=== PATIENT | male | born 1960 | race African-American/Black ===

== ENCOUNTER 2023-08-11 19:12 | Emergency (ER) | payer OTHER, SELFPAY ==
[2023-08-11 19:14] VITALS: BP 135/97; PULSE 74; RESP 18; TEMP 35.9; O2SAT 99; BMI 33.0
--- NOTE | 2023-08-11 19:37 | CT_ITS ---
STUDY: CT ABDOMEN AND PELVIS WITHOUT CONTRAST REASON FOR EXAM: Male, 63 years old. right flank pain RADIATION DOSAGE (If Supplied By Facility): CTDIvol = ( 17.73 ) mGy, DLP = ( 983.44 ) mGycm TECHNIQUE: Transaxial images were obtained from the dome of the diaphragm to the symphysis pubis without oral contrast, and without intravenous contrast. Sagittal and coronal images were reconstructed. Individualized dose optimization techniques were used for this CT. COMPARISON: None. FINDINGS: Trace bilateral lower lobe atelectasis. Borderline cardiomegaly with coronary artery calcifications. Diffuse fatty liver. There are surgical clips in the gallbladder fossa consistent with a prior cholecystectomy. Normal spleen. Normal pancreas. Right adrenal lesion measuring 2.9 x 2.4 cm with Hounsfield units consistent with adenoma. Otherwise normal bilateral adrenal glands. Mild bilateral perinephric stranding. Tiny stone in the upper pole of the right kidney measuring 3.7 mm. Mild right hydronephrosis with right ureter distended to the approximate sacrum level where there is a stone measuring 3.5 mm. There is a left lower renal pole stone measuring 3.1 mm . Otherwise normal left kidney. Normal visualized stomach. Normal small intestine. The colon is decompressed with diffuse mild thickening of the wall concerning for mild colitis. The appendix is visualized and appears normal. There is diffuse atherosclerotic calcification of the abdominal aorta, without a demonstrated aneurysm. Normal inferior vena cava. Normal retroperitoneum. Normal urinary bladder. Small bilateral fat-containing inguinal hernias. There are diffuse degenerative changes of the visualized lumbar spine. This is more severe at L4-S1 with vacuum phenomenon. CT/Abdomen/Pelvis without Cont IMPRESSION: Mild right hydronephrosis due to a 3.5 mm stone in the distal right ureter, at the approximate level of the upper sacrum. Bilateral intrarenal stones as described. Possible mild diffuse colitis. No acute appendicitis or bowel obstruction. Diffuse fatty liver, remainder of abdominal viscera are unremarkable. Electronically Signed: Frieda Cheung MD at 21:15 EST ,
--- NOTE | 2023-08-11 19:42 | EDS_ITS ---
HPI <JOSE L Cazares - Last Filed: 08/11/23 21:19> History of Present Illness Chief Complaint: Flank Pain Narrative Narrative: 63-year-old male had dull right flank pain over the last 2 days. He did not think much of it and thought it was the way he was sitting on the couch. It worsened today around 4 PM and he also has generalized discomfort in his abdomen. He has no urinary symptoms. He has had 3 bowel movements today he attributes to taking meclizine for his vertigo. He has no nausea or vomiting or chest pain or shortness of breath. His vertigo has been ongoing since and is similar to when he had it in the past. He is being worked up for this with a Holter monitor and by ENT. This is not his primary complaint and he is not vertiginous currently. He has no history of kidney stones. History of cholecystectomy. PFS <JOSE L Cazares - Last Filed: 08/11/23 21:19> [facility] Medical History (Updated 08/11/23 @ 21:[address] Gianluca Gordillo, ) Diabetes mellitus Hyperlipidemia Hypertension Home Medications hydrocodone-acetaminophen 5-325mg 5mg-325mg 1 tab PO Q6H PRN PRN Pain 3 days #12 TABLETS 08/11/23 [Rx Last Taken Unknown] ondansetron 4 mg disintegrating tablet 4 mg PO Q6H PRN PRN Nausea #15 tabs 08/11/23 [Rx Last Taken Unknown] tamsulosin 0.4 mg capsule (Flomax) 0.4 mg PO QHS 7 days #7 caps 08/11/23 [Rx Last Taken Unknown] Allergy/AdvReac Type Severity Reaction Status Date / Time diltiazem Allergy Mild dizziness Verified 08/11/23 19:14 triamterene Allergy Mild dizziness Verified 08/11/23 19:14 Surgical History (Updated 08/11/23 @ 19:58 by Neyda Giles) Hx of cholecystectomy Social History Smoking Status: Never smoker ROS <JOSE L Cazares - Last Filed: 08/11/23 21:19> ROS ED ROS Narrative Constitutional: Negative for fever, chills, malaise. CVS: Negative for chest pain, syncope. Respiratory: Negative for shortness of breath. GI: Positive for abdominal pain. Negative for nausea, vomiting, diarrhea, constipation, melena, hematochezia. : Negative for dysuria, hematuria or frequency. EXAM <JOSE L Cazares - Last Filed: 08/11/23 21:19> Physical Exam Narrative Exam Narrative: CONST: Patient sitting in no acute distress. EYES: Normal inspection. NECK: Normal inspection. RESP: No respiratory distress, CTAB. CVS: Regular rate and rhythm, no murmur, no gallop. ABD: Soft and nontender, no guarding or rebound, nondistended. Back: Normal inspection, right CVA tenderness. SKIN: Color normal, no rash, warm, dry, intact. EXTREMITIES: Normal appearance, no pedal edema. NEURO: Oriented x4. PSYCH: Normal affect. Const Vital Signs: 08/11/23 19:14 08/11/23 21:54 Temperature 96.7 F L Temperature Source Temporal Pulse Rate 74 87 Respiratory Rate 18 16 Blood Pressure 135/97 H 136/87 H Blood Pressure Mean 109 103 Pulse Ox 99 97 Oxygen Delivery Method Room Air <Dr. Gianluca Gordillo DO - Last Filed: 08/11/23 22:41> Physical Exam Const Vital Signs: 08/11/23 19:14 08/11/23 21:54 Temperature 96.7 F L Temperature Source Temporal Pulse Rate 74 87 Respiratory Rate 18 16 Blood Pressure 135/97 H 136/87 H Blood Pressure Mean 109 103 Pulse Ox 99 97 Oxygen Delivery Method Room Air MDM <JOSE L Cazares - Last Filed: 08/11/23 21:19> [facility] Narrative Medical decision making narrative: History gathered from: Patient and spouse Patient had a few days of intermittent right flank pain which worsened this afternoon. He appears well and nontoxic and is afebrile with normal vital signs. Normal cardiopulmonary exam. His right CVA tenderness. There is no skin changes. He reports abdominal discomfort but on exam abdomen is soft and nontender. Differential includes musculoskeletal pain, kidney stone, pyelonephr itis. CBC and BMP are within normal limits. CT shows moderate hydronephrosis and a 3.5 mm stone distal right ureteral stone. His pain is well-managed after 1 dose of Toradol. I prescribed Percocet, Zofran, Flomax, and Keflex for UTI. Patient instructed on return precautions and discharged in stable condition. Lab Data Attestation: I reviewed the patient's lab results. Labs: Laboratory Results - last 24 hr 08/11/23 08/11/23 19:49 20:50 WBC 9.8 RBC 5.72 Hgb 15.2 Hct 47.6 MCV 83.2 MCH 26.6 L MCHC 31.9 L RDW Std Deviation 41.3 RDW Coeff of Navin 13.6 Plt Count 259 MPV 9.5 Immature Gran % (Auto) 0.600 Neut % (Auto) 81.4 H Lymph % (Auto) 11.6 L Blanco % (Auto) 5.6 Eos % (Auto) 0.3 Baso % (Auto) 0.5 Absolute Neuts (auto) 7.9 H Absolute Lymphs (auto) 1.13 Nucleated RBC % 0 Sodium 138 Potassium 3.7 Chloride 106 Carbon Dioxide 28.0 Anion Gap 4 L BUN 21 H Creatinine 1.29 Estim Creat Clear Calc 70.91 Est GFR (MDRD) Af Amer 72 Est GFR (MDRD) Non-Af 60 BUN/Creatinine Ratio 16.3 Glucose 179 H Calcium 9.8 Urine Color Yellow Urine Clarity Cloudy Urine pH 6.5 Ur Specific Mcalester 1.020 Urine Protein 100 H Urine Glucose (UA) Normal Urine Ketones 5 H Urine Occult Blood 250 H Urine Nitrite Positive H Urine Bilirubin Negative Urine Urobilinogen 1 H Ur Leukocyte Esterase 100 H Urine RBC > 100 SEEN Urine WBC 0-5 SEEN Ur Squamous Epith Cells 0 SEEN Urine Bacteria 0 SEEN Urine Mucus 0 SEEN Radiography Diagnostic Testing: Clinical Impression(s) from Imaging Studies Abdomen/Pelvis CT 08/11/23 19:37 IMPRESSION: Mild right hydronephrosis due to a 3.5 mm stone in the distal right ureter, at the approximate level of the upper sacrum. Bilateral intrarenal stones as described. Possible mild diffuse colitis. No acute appendicitis or bowel obstruction. Diffuse fatty liver, remainder of abdominal viscera are unremarkable. Electronically Signed: Frieda Cheung MD at 21:15 EST , <Dr. Gianluca Gordillo, DO - Last Filed: 08/11/23 22:41> [facility] MDM Narrative Medical decision making narrative: History gathered from: Patient and spouse Patient had a few days of intermittent right flank pain which worsened this afternoon. He appears well and nontoxic and is afebrile with normal vital signs. Normal cardiopulmonary exam. His right CVA tenderness. There is no skin changes. He reports abdominal discomfort but on exam abdomen is soft and nontender. Differential includes musculoskeletal pain, kidney stone, pyelonephritis. CBC and BMP are within normal limits. CT shows moderate hydronephrosis and a 3.5 mm stone distal right ureteral stone. His pain is well-managed after 1 dose of Toradol. I prescribed Percocet, Zofran, Flomax, . Patient instructed on return precautions and discharged in stable condition. I have personally performed a face to face assessment of the patient and have reviewed the RAINER Note. I performed a substantive portion of the visit including all aspects of the following. My canas findings include: History is 63-year-old male with intermittent right flank pain. Exam is CVA tenderness. No acute distress. Medical Decison Making my review of the CT demonstrates a distal ureteral stone about 4 mm on the right with some associated hydronephrosis and hydroureter. Will write for him to have pain medication. His urine shows nitrates but no significant white cells or bacteria noted on the micro. This will be sent for culture. I do not feel strongly this needs to be treated for UTI. Nitrates could be a false positive based on the amount of blood. History & Record Review Discussion w/independent historian: Patient Lab Data Labs: Laboratory Results - last 24 hr 08/11/23 08/11/23 19:49 20:50 WBC 9.8 RBC 5.72 Hgb 15.2 Hct 47.6 MCV 83.2 MCH 26.6 L MCHC 31.9 L RDW Std Deviation 41.3 RDW Coeff of Navin 13.6 Plt Count 259 MPV 9.5 Immature Gran % (Auto) 0.600 Neut % (Auto) 81.4 H Lymph % (Auto) 11.6 L Blanco % (Auto) 5.6 Eos % (Auto) 0.3 Baso % (Auto) 0.5 Absolute Neuts (auto) 7.9 H Absolute Lymphs (auto) 1.13 Nucleated RBC % 0 Sodium 138 Potassium 3.7 Chloride 106 Carbon Dioxide 28.0 Anion Gap 4 L BUN 21 H Creatinine 1.29 Estim Creat Clear Calc 70.91 Est GFR (MDRD) Af Amer 72 Est GFR (MDRD) Non-Af 60 BUN/Creatinine Ratio 16.3 Glucose 179 H Calcium 9.8 Urine Color Yellow Urine Clarity Cloudy Urine pH 6.5 Ur Specific [place]ester 1.020 Urine Protein 100 H Urine Glucose (UA) Normal Urine Ketones 5 H Urine Occult Blood 250 H Urine Nitrite Positive H Urine Bilirubin Negative Urine Urobilinogen 1 H Ur Leukocyte Esterase 100 H Urine RBC > 100 SEEN Urine WBC 0-5 SEEN Ur Squamous Epith Cells 0 SEEN Urine Bacteria 0 SEEN Urine Mucus 0 SEEN Radiography Diagnostic Testing: Clinical Impression(s) from Imaging Studies Abdomen/Pelvis CT 08/11/23 19:37 IMPRESSION: Mild right hydronephrosis due to a 3.5 mm stone in the distal right ureter, at the approximate level of the upper sacrum. Bilateral intrarenal stones as described. Possible mild diffuse colitis. No acute appendicitis or bowel obstruction. Diffuse fatty liver, remainder of abdominal viscera are unremarkable. Electronically Signed: Frieda Cheung MD at 21:15 EST , Discharge Plan Triage Chief Complaint: Flank Pain ED Midlevel Provider: Lacey Mathis ED Provider: Gianluca Gordillo Dx/Rx/DC Orders Clinical Impression: Right kidney stone, Renal colic Instructions: ED Kidney Stone with Pain Prescriptions: New hydrocodone-acetaminophen [hydrocodone-acetaminophen] 5-325 mg tablet 1 tab PO Q6H PRN PRN (Reason: Pain) 3 Days Qty: 12 0RF tamsulosin [Flomax] 0.4 mg capsule 0.4 mg PO QHS 7 Days Qty: 7 0RF ondansetron [ondansetron] 4 mg tablet,disintegrating 4 mg PO Q6H PRN PRN (Reason: Nausea) Qty: 15 0RF Primary Care Provider: Sen Rodriguez Referrals: Sen Rodriguez MD [Primary Care Provider] - Activity Restrictions/Additional Instructions: I prescribed hydrocodone to take as needed for pain. You can also take ibuprofen 600 mg every 6 hours either at the same time OR in between each dose. Take the antibiotic as prescribed. If pain is not manageable or you develop a fever or symptoms worsen come back to the ER. Disposition Disposition: Home, Self Care Discharge Date/Time: 08/11/23 22:00
[2023-08-11] MEDS: Ketorolac 30 MG/ML Syringe IV (19:55)
[2023-08-11 19:56] LABS: Absolute Lymphocyte Count 1.13 X10^3/uL (0.83-4.51); Absolute Neutrophil Count 7.9 X10^3/uL (2.0-7.7); Basophil# 0.05 X10^3/uL; Basophil% 0.5 % (0-1); Eosinophil# 0.03 X10^3/uL; Eosinophils% 0.3 % (0-5); Hematocrit 47.6 % (40-54); Hemoglobin 15.2 g/dL (13.0-16.5); Lymphocyte # 1.13 X10^3/ul (0.83-4.51); Lymphocyte % 11.6 % (19-41); Mean Corp Hgb Conc 31.9 g/dL (32-36); Mean Corpuscular Hgb 26.6 pg (27.0-32.0); Mean Corpuscular Volume 83.2 fL (80-94); Mean Platelet Vol. 9.5 fl (6.2-12.0); Monocyte# 0.55 X10^3/uL; Monocyte% 5.6 % (0-10); NRBC Flagged by Analyzer 0 % (0-5); Neutrophil # 7.94 X10^3/uL (2.7-7.7); Neutrophil % 81.4 % (47-70); Platelet Count 259 K/mm3 (150-450); RBC Distribution Width CV 13.6 % (11.6-14.6); RBC Distribution Width SD 41.3 fl (35.1-43.9); Red Blood Count 5.72 M/mm3 (4.6-6.2); White Blood Count 9.8 K/mm3 (4.4-11.0)
--- OUTSIDE RECORDS SUMMARY | 2023-08-11 20:04 | XMS RPT_ITS | CCD ---
Author Name Unknown Address [facility] [address] [place] [address] Organization [facility] Care Team Providers Care Process Coordinator Name Role Phone Nneka Rodriguez MD Primary Care Provider NNEKA RODRIGUEZ Primary Care Unavailable PROVIDER, UNKNOWN Referring Unavailable Nneka Rodriguez MD Primary Care Provider [phone] NNEKA RODRIGUEZ Primary Care Unavailable ESHA COSTELLO Referring Unavailable BRANDY, NNEKA Grover Primary Care Unavailable ESHA COSTELLO Referring Unavailable CHANTAL SOSA Attending Unavailable BRANDY, NNEKA Grover Primary Care Unavailable BRANDY, NNEKA Grover Primary Care Unavailable ZOILA MAHMOOD Attending Unavailable NNEKA RODRIGUEZ Primary Care Unavailable BRANDY, NNEKA Grover Referring Unavailable BRANDY, NNEKA Grover Primary Care Unavailable ESHA COSTELLO Attending Unavailable BRANDY, NNEKA Grover Primary Care Unavailable BRANDY, NNEKA Grover Attending Unavailable BRANDY, NNEKA Grover Primary Care Unavailable BRANDY, NNEKA Grover Referring Unavailable BRANDY, NNEKA Grover Primary Care Unavailable ZOILA MAHMOOD Referring Unavailable BRANDY, NNEKA Grover Primary Care Unavailable ZOILA MAHMOOD Referring Unavailable BRANDY, NNEKA Grover Primary Care Unavailable ESHA COSTELLO Referring Unavailable IMLLY IRVING Attending Unavailabl e NNEKA RODRIGUEZ Primary Care Unavailable NNEKA RODRIGUEZ Referring Unavailable BRANDY, NNEKA Grover Primary Care Unavailable BRANDY, NNEKA Grover Referring Unavailable BRANDY, NNEKA Grover Primary Care Unavailable BRANDY, NNEKA Grover Referring Unavailable BRANDY, NNEKA Grover Primary Care Unavailable NNEKA RODRIGUEZ Attending Unavailable Allergies Allergy Classification Reported Allergen(s) Allergy Type Date of Onset Reaction(s) Facility (18 sources) dilTIAZem; Translations: [DILTIAZEM] Drug Allergy 09-29-19 17 Other: See Comments [facility] Work Phone: (18 sources) Doxycycline; Translations: [DOXYCYCLINE] Drug Allergy 08-04-19 12 Rash [facility] (18 sources) hydroCHLOROthiazide / Triamterene; Translations: [TRIAMTERENE-HYDROCHLOR OTHIAZID] Drug Allergy 10-11-19 13 Intolerance [facility] Medications Current Medications Medication Drug Class(es) Dates Sig (Normalized) Sig (Original) doxazosin 4 mg oral tablet (17 sources) alpha-Adrenergic Elodia Start: 07-14-2022 End: 03-01-2024 take 1 tablet by mouth once daily doxazosin (CARDURA) 4 mg tablet Indications: Essential hypertension, benign Take 1 tablet by mouth once daily. 90 tablet 1 03/02/2023 03/01/2024 Active Completed/Discontinued Medications Medication Drug Class(es) Dates Sig (Normalized) Sig (Original) atorvastatin 20 mg oral tablet (18 sources) HMG-CoA Reductase Inhibitor Start: 07-14-2022 End: 01-09-2024 take 1 tablet by mouth once daily at bedtime for hyperlipidemia atorvastatin (LIPITOR) 20 mg tablet Indications: Mixed hyperlipidemia Take 1 tablet by mouth daily at bedtime. For cholesterol. 30 tablet 0 01/09/2023 06/29/2023 Discontinued Problems Problem Classification Problem Date Documented Date Episodic/Chronic Aortic; peripheral; and visceral artery aneurysms (9 sources) Ascending aorta dilatation; Translations: [Thoracic aortic ectasia] Onset: 01-31-2023 01-31-2023 Chronic Cardiac dysrhythmias (20 sources) Premature atrial contraction; Translations: [Atrial premature depolarization] Onset: 09-24-2020 09-24-2020 Chronic Conditions associated with dizziness or vertigo (2 sources) Dizziness and giddiness; Translations: [Lightheaded] Onset: 07-23-2023 Episodic Conduction disorders (1 source) Nonspecific intraventricular block; Translations: [BBB (bundle branch block)] Onset: 01-29-2023 Chronic Diabetes mellitus without complication (20 sources) Diabetes mellitus; Translations: [Type 2 diabetes mellitus without complications] Onset: 07-26-2015 07-26-2015 Chronic Disorders of lipid metabolism (20 sources) Hyperlipidemia; Translations: [Hyperlipidemia, unspecified] Onset: 06-11-2009 06-11-2009 Chronic Essential hypertension (20 sources) Benign essential hypertension; Translations: [Essential (primary) hypertension] Onset: 06-11-2009 01-23-2020 Chronic Heart valve disorders (1 source) Unspecified abnormalities of heart beat; Translations: [Altered heart rate] Onset: 07-25-2023 Episodic Immunizations and screening for infectious disease (1 source) Vaccination needed; Translations: [Encounter for immunization] 06-29-2023 Episodic Osteoarthritis (19 sources) Primary gonarthrosis, bilateral; Translations: [Bilateral primary osteoarthritis of knee] Onset: 06-11-2009 Chronic Other connective tissue disease (1 source) Cramp in limb; Translations: [Cramp and spasm] 06-29-2023 Episodic Other connective tissue disease (1 source) Cramp and spasm; Translations: [Cramp in limb] Onset: 06-29-2023 Episodic Other lower respiratory disease (1 source) Shortness of breath; Translations: [SOB (shortness of breath) on exertion] Onset: 07-23-2023 Episodic Other male genital disorders (16 sources) Male erectile dysfunction, unspecified; Translations: [Impotence of organic origin] Onset: 03-22-2013 03-22-2013 Chronic Other non-traumatic joint disorders (4 sources) Pain in right knee; Translations: [Pain in joint, lower leg] Onset: 05-15-2023 Episodic Other screening for suspected conditions (not mental disorders or infectious disease) (2 sources) Other specified abnormal findings of blood chemistry; Translations: [Encounter for screening for malignant neoplasm of prostate] Onset: 12-16-2022 Episodic Residual codes; unclassified (18 sources) Obstructive sleep apnea syndrome; Translations: [Obstructive sleep apnea (adult) (pediatric)] Onset: 08-31-2015 09-24-2020 Chronic Results Test Name Value Interpretation Reference Range Facil ity Vital Signs Date Time Vital Sign Value Performing Clinician Apoorva sorenson 06-29-2023 13:33-0500 Body height 177.8 cm Nneka Rodriguez MD Work Phone: [facility] 06-29-2023 13:33-0500 Body weight 107.05 kg Nneka Rodriguez MD Work Phone: [facility] 06-29-2023 13:33-0500 Diastolic blood pressure 68 mm[Hg] Nneka Rodriguez MD Work Phone: [facility] 06-29-2023 13:33-0500 Heart rate 51 /min Nneka Rodriguez MD Work Phone: [facility] 06-29-2023 13:33-0500 SaO2% (BldA) [Mass fraction] 97 % Nneka Rodriguez MD Work Phone: [facility] 06-29-2023 13:33-0500 Systolic blood pressure 116 mm[Hg] Nneka Rodriguez MD Work Phone: [facility] 01-26-2023 13:08-0400 Body weight 105.69 kg Esha Haagen REVENUE SPECIALIST.POWERHOUSE LABORER Work Phone: [facility] 01-26-2023 13:08-0400 Diastolic blood pressure 70 mm[Hg] Esha Haagen REVENUE SPECIALIST.POWERHOUSE LABORER Work Phone: [facility] 01-26-2023 13:08-0400 Heart rate 56 /min Esha Haagen REVENUE SPECIALIST.POWERHOUSE LABORER Work Phone: [facility] 01-26-2023 13:08-0400 Respiratory rate 16 /min Esha Haagen REVENUE SPECIALIST.POWERHOUSE LABORER Work Phone: [facility] 01-26-2023 13:08-0400 SaO2% (BldA) [Mass fraction] 97 % Esha Haagen REVENUE SPECIALIST.POWERHOUSE LABORER Work Phone: [facility] 01-26-2023 13:08-0400 Systolic blood pressure 108 mm[Hg] Esha Haagen REVENUE SPECIALIST.POWERHOUSE LABORER Work Phone: [facility] 12-30-2021 15:57-0400 Diastolic blood pressure 82 mm[Hg] Nneka Rodriguez MD Work Phone: [facility] 12-30-2021 15:57-0400 Systolic blood pressure 136 mm[Hg] Nneka Rodriguez MD Work Phone: [facility] 12-30-2021 15:24-0400 Body weight 107.5 kg Nneka Rodriguez MD Work Phone: [facility] 12-30-2021 15:24-0400 Heart rate 72 /min Nneka Rodriguez MD Work Phone: [facility] 09-29-2021 09:52-0400 Body height 177.8 cm Iggy Reza MD Work Phone: [facility] 09-29-2021 09:52-0400 Body weight 106.59 kg Iggy Reza MD Work Phone: [facility] Encounters Encounter Date Encounter Type Care Provider Facility Start: 08-06-2023 End: 08-06-2023 ambulatory MILLY Jose MARSHALLMAEGANIRONFERNANDEZ Facility:[facility] Start: 07-27-2023 End: 07-27-2023 ambulatory NNEKA Grover BRANDY Facility:[facility] Start: 07-25-2023 End: 07-26-2023 ambulatory NNEKA Lenore BRANDY Facility:[facility] Start: 07-23-2023 End: 07-24-2023 ambulatory [facility] Facility:[facility] Start: 06-29-2023 End: 06-30-2023 ambulatory [facility] Facility:[facility] Start: 06-29-2023 End: 06-29-2023 Patient encounter procedure Nneka Rodriguez MD Work Phone: [facility] [place] Procedures Date Procedure Procedure Detail Performing Clinician Start: 06-29-2023 PFIZER-BIONTECH COVI D-19 VACCINE () AGE 12+ YR Nneka Rodriguez MD Work Phone: Start: 01-26-2023 Ecg routine ecg w/le ast 12 lds i&r only [facility] Provider Start: 05-13-2021 Adult depression scr eening assessment Iggy Reza MD Work Phone: Start: 03-03-2016 Colonoscopy Iggy august MD Work Phone: Plan of Treatment Date Care Activity Detail Author Start: 12-17-2027 PROSTATE CANCER SCRE ENING DISCUSSION PROSTATE CANCER SCREENING DISCUSSION [facility] Start: 12-17-2027 Prostate specific an tigen measurement Prostate Cancer Screening Discussion [facility] Start: 03-05-2026 PROSTATE CANCER SCRE ENING DISCUSSION PROSTATE CANCER SCREENING DISCUSSION [facility] Start: 03-03-2026 Colonoscopy COLONOSCOPY [facility] Start: 03-03-2026 COLORECTAL CANCER SCREENING COLORECTAL CANCER SCREENING [facility] Start: 08-19-2026 Screening for malign ant neoplasm of colon [facility] Start: 06-29-2024 Annual PCP Team Horse [employer] Manager ally Disease Visit Annual PCP Team Chronic Disease Visit [facility] Start: 06-29-2024 BP Controlled (<130/80) BP Controlle d (<130/80) [facility] Start: 06-29-2024 Diabetic foot examination Diabetic F oot Exam [facility] Start: 06-29-2024 RSV Vaccine (1 - 1-d ose 60+ series) RSV Vaccine (1 - 1-dose 60+ series) [facility] Immunizations Immunization Date Immunization Notes Care Provider Fa cility 06-29-2023 COVID-19 vaccine, ag e 12+ yr, season (Instagram) Nneka Rodriguez MD Work Phone: [facility] 07-14-2022 COVID-19 booster vaccine, age 12+ yr, bivalent ([employer]) Nneka Rodriguez MD Work Phone: [facility] 07-14-2022 influenza, injectabl e, quadrivalent, contains preservative Nneka Rodriguez MD Work Phone: [facility] 07-14-2022 influenza virus vaccine, unspecified formulation Iggy Reza MD Work Phone: [facility] 07-01-2021 influenza, injectabl e, quadrivalent, contains preservative Iggy Reza MD Work Phone: [facility] 11-30-2020 COVID-19 vaccine, fu ll dose (MODERNA) Iggy Reza MD Work Phone: [facility] 11-02-2020 COVID-19 vaccine, fu ll dose (MODERNA) Iggy Reza MD Work Phone: [facility] 05-16-2019 influenza, injectabl e, quadrivalent, contains preservative Iggy Reza MD Work Phone: [facility] Work Phone: 04-27-2017 influenza, injectabl e, quadrivalent, contains preservative Iggy Reza MD Work Phone: [facility] 12-05-2013 tetanus toxoid, redu sean diphtheria toxoid, and acellular pertussis vaccine, adsorbed Iggy Reza MD Work Phone: [facility] Work Phone: 11-11-2003 tetanus toxoid, adsorbed Iggy Reza MD Work Phone: [facility] 07-16-2003 diphtheria and tetan us toxoids, adsorbed for pediatric use Iggy Reza MD Work Phone: [facility] Work Phone: Payers Date Payer Category Payer Private Health Insurance [employer] Kalina VERNONA OAP [id number] 2020-Present [phone] [address] [place] [address] Open Access [id number] 2020 Private Health Insurance [employer] C IGNA OAP [id number] 2020-Present [phone] [address] [place] [address] Open Access [id number] 2020 Private Health Insurance [id number] Social History Date Type Detail Facility Start: 12-02-2010 End: 07-14-2022 Tobacco smoking status NHIS Never smoked tobacco [facility] Work Phone: Start: 10-18-2021 End: 06-29-2023 Alcohol intake Current drinker of alcohol (finding) [facility] Start: 06-19-2020 End: 10-18-2021 Alcohol intake [facility] Start: 05-24-2020 End: 07-10-2022 History SDOH Alcohol Frequency 3 [facility] Start: 05-24-2020 End: 07-10-2022 History SDOH Alcohol Std Drinks 1 [facility] Start: 01-07-2020 End: 07-10-2022 History SDOH Social Connections Phone 4 [facility] Start: 01-07-2020 End: 07-10-2022 History SDOH Social Connections Get Together 2 [facility] Start: 01-07-2020 End: 07-10-2022 History SDOH Financial 5 [facility] Start: 01-07-2020 Education 17 [facility] Start: 1960 Sex Assigned At Male [facility] Start: 10-01-2021 End: 12-30-2021 Exposure to SARS-CoV-2 (event) Not sure [facility] Start: 12-02-2010 End: 07-14-2022 Tobacco use and exposure Smokeless tobacco non-user [facility] Work Phone: Start: 03-31-2021 Alcohol intake Current non-drinker of alcohol (finding) [facility] Start: 06-19-2020 End: 07-10-2022 Social connection and isolation panel [facility] Do you belong to any clubs or organizations such as rastafari groups, unions, fraternal or athletic groups, or school groups? Yes [facility] Are you now , , , , never or living with a partner? [facility] How often to you hav e a drink containing alcohol? Monthly or less [facility] How many standard dr inks containing alcohol do you have on a typical day? 1 or 2 [facility] How often do you hav e 6 or more drinks on 1 occasion? Never [facility] How hard is it for y ou to pay for the very basics like food, housing, medical care, and heating Not hard at all [facility] Do you feel stress - tense, restless, nervous, or anxious, or unable to sleep at night because your mind is troubled all the time - these days [OSQ] Not at all [facility] (I/We) worried whehiginio er (my/our) food would run out before (I/we) got money to buy more. Never true [facility] In the past 12 month s, was there a time when you were not able to pay the mortgage or rent on time? No [facility] Start: 10-13-2020 Gender identity Identifies as male gender (finding) [facility] Start: 10-13-2020 Sexual orientation Heterosexual (finding) [facility] Medical Equipment Procedure Code Equipment Code Equipment Origin al Text Equipment Identifier Dates Start: 07-26-2021 Clinical Notes 03-03-2016 to 08-06-2023 Addendum Note - Nneka Rodriguez MD - 06/29/2023 2:07 PM Nneka Monsivais MD - 06/29/2023 1:27 PM ESTTelephone Encounter - Esha Costello APRN.POWERHOUSE LABORER - 06/07/2023 11:31 PM EST Note Date & Type Note Facility 08-06-2023 Note HNO ID: [id number] Author: MILLY IRVING, DO Service: ? Author Type: Physician Type: Progress Notes Filed: 08/06/2023 14:22 Note Text: [facility] Heart, Vascular and Thoracic [place] [facility] Department of Cardiovascular Medicine SECTION OF REGIONAL CARDIOLOGY [place] 08/12/21 HPI: Nneka Francis is a 63 year old male with a history of DM, HTN, HLN and abnormal EKG who is here today for follow up of chest pain, shortness of breath and palpitations. He had this start the beginning of July 2020 with palpitations pounding or racing then would have chest pain going to his arms or back. It has been better. He has not had prior heart problems. He has had a cardiac work up in response to these complaints with MPI, ECHO and a monitor. The stress test did not show any ischemia or infarction and the echo was with normal LV systolic function, normal valves, mild or grade I diastolic dysfunction mild ascending aortic dilatation (4.2 cm) unchanged from prior study.. Patient has had complaints of dizziness nausea and occasional vomiting since 07/09/2023. He had an echo done last month which was as described above and no significant changes. He had a monitor placed which is not available as yet. This is a little better especially since starting meclizine recently. It feels like the room is spinning very slow and he cannot stop it. The patient is involved in sporadic irregular exercise Patient denies lower extremity edema, PND, orthopnea, presyncope, syncope or claudication symptoms. Prior Hx: 02/04/21 He feels a little better since starting on a diuretic recently and states his BP is now much better and has never seen 130 in a long time as it is usually in the 150s or higher. He was having 2 cups a day of coffee and 2 cans of pepsi a day but cut back a month or so ago when his symptoms started and was told to cut back in 08/2020. He notes he had stopped his CPAP over the last year but restarted per Dr. Rodriguez when he first had these symptoms. He denies smoking, and has rare alcohol on weekends. His father had a DC in his 50s. PAST MEDICAL HISTORY Diagnosis Date Abnormal EKG left atrial enlargment, LVH, non-spec ST and T wave changes. DM (diabetes mellitus) (HCC) Hemorrhage of rectum and anus Hyperlipidemia Unspecified essential hypertension Essential hypertension PAST SURGICAL HISTORY Procedure Laterality Date COLONOSCOPY FLX DX W/COLLJ SPEC WHEN PFRMD 04/19/1999 Colonoscopy COLONOSCOPY FLX DX W/COLLJ SPEC WHEN PFRMD 11/08/10 COLONOSCOPY FLX DX W/COLLJ SPEC WHEN PFRMD 03/03/2016 Colonoscopy LAPS SURG CHOLECYSTECTOMY W/CHOLANGIOGRAPHY 07/18/05 FAMILY HISTORY Problem Relation Age of Onset Hypertension Father Diabetes Father Kidney Disease Father dialysis SOCIAL HISTORY Social History Tobacco Use Smoking status: Never Smokeless tobacco: Never Vaping Use Vaping Use: Never used Substance Use Topics Alcohol use: Yes Alcohol/week: 1.0 standard drink of alcohol Types: 1 Shots of liquor per week Drug use: No ALLERGIES: Diltiazem, Doxycycline, and Triamterene-Hydrochlorothiazid CURRENT MEDICATIONS: Current Outpatient Medications Medication Sig meclizine (ANTIVERT) 25 mg tab Take 1 tablet by mouth every 6 hours as needed (dizziness). metoprolol succinate ER (TOPROL XL) 25 mg 24 hr tablet Take 1 tablet by mouth once daily. lisinopril (ZESTRIL) 40 mg tablet Take 1 tablet by mouth once daily. metFORMIN (GLUCOPHAGE) 500 mg tablet Take 1 tablet by mouth daily with breakfast. chlorthalidone (HYGROTON) 25 mg tablet Take 1 tablet by mouth once daily. doxazosin (CARDURA) 4 mg tablet Take 1 tablet by mouth once daily. blood sugar diagnostic (ONETOUCH VERIO TEST STRIPS) test strip Use as instructed lancets (ONE TOUCH DELICA) 33 gauge Test blood sugar(s) 1-2 times daily. Dx: Type 2 DM - Controlled E11.9 Insulin: No hydrocortisone (ANUSOL-HC) 25 mg suppository 1 Suppository by RECTAL route twice daily as needed (hemorrhoids/bleeding). CPAP autoPAP 5-20 cmH2O, mask, tubing, filters, heated humidity, lifetime supplies. Please do overnight oximetry on PAP one month after patient acclimates to PAP therapy. Dx: LOVE atorvastatin (LIPITOR) 20 mg tablet Take 1 tablet by mouth daily at bedtime. For cholesterol. (Patient not taking: Reported on 07/23/2023) sildenafil (REVATIO) 20 mg tablet May use up to 5 a day Current Facility-Administered Medications Medication Dose Route Frequency perflutren lipid microspheres 1.3 mL in NaCl (PF) 0.9% 10 mL injection (DEFINITY) INTRAVENOUS DIRECTED PRN sodium chloride 0.9 % (flush) 10 mL (BD POSIFLUSH) 10 mL INTRAVENOUS DIRECTED PRN perflutren lipid microspheres 1.3 mL in NaCl (PF) 0.9% 10 mL injection (DEFINITY) INTRAVENOUS DIRECTED PRN sodium chloride 0.9 % (flush) 10 mL (BD POSIFLUSH) 10 mL INTRAVENOUS DIRECTED PRN ROS: Card: See present history. Pulm: See H (more content not included)... [facility] 07-23-2023 Note HNO ID: [id number] Author: ZOILA MAHMOOD APRN.POWERHOUSE LABORER Service: ? Author Type: Nurse Practitioner Type: Progress Notes Filed: 07/23/2023 12:10 Note Text: Chief Complaint Patient presents with: Dizziness: Nausea, SOB since 07/09, pt reports he has not taken atorvastatin for 2 months. Did not take any meds today. HPI Nneka Francis is a 63 year old male who presents here today for Above Complaints. Currently today: When he saw Dr. Rodriguez on 06/29/2023 was feeling pretty darn good. On the morning of day had a light breakfast and then went to family dinner in the afternoon. Drank a cranberry juice drink-had a small amount of alcohol in it. A couple hours later was sitting still and starting feeling dizzy and hot. Sat in a chair all by himself-was time to eat and had a decent appetite but felt like he couldn't eat anything. Has been on and off like this since then. Went to [place] last week. With the flight and changes, had these sx. Yesterday in airport needed to have a wheelchair because of weakness and dizziness. Vomited x1 while at the airport, vomited again when he got home. Dizziness feels like a slow gravitational pressure where he is feeling very slow and like things are moving. When he gets up and starts moving this tends to start every morning, but not always be so severe. Can tell it's always there and he doesn't want to do anything to provoke it. Blowing nose the other day set things off. Hasn't eaten much since returning home last evening. Had a pancake and sausage this morning, but typically eats more than this. Does have some SOB. Is making it hard for ADLs as well as work. Denies CP or palpitations/fluttering heart. Had something similar several years ago but not quite the same. Was dx with vertigo at that point. Did see neurology and cardiology at that point. Is following up with his fibre optic cable splicer in 2023. Has difficulty swallowing, specifically when eating rice and eggs. Is wondering if it could be because he recently had some teeth removed. Is getting his crowns on Sunday of this week (2 days). Will have to vomit up food to get it out of the way. Past medical history, appointments, medications, allergies reviewed. Previous Medical History PAST MEDICAL HISTORY Diagnosis Date Abnormal EKG left atrial enlargment, LVH, non-spec ST and T wave changes. DM (diabetes mellitus) (HCC) Hemorrhage of rectum and anus Hyperlipidemia Unspecified essential hypertension Essential hypertension Previous Surgical History PAST SURGICAL HISTORY Procedure Laterality Date COLONOSCOPY FLX DX W/COLLJ SPEC WHEN PFRMD 04/19/1999 Colonoscopy COLONOSCOPY FLX DX W/COLLJ SPEC WHEN PFRMD 11/08/10 COLONOSCOPY FLX DX W/COLLJ SPEC WHEN PFRMD 03/03/2016 Colonoscopy LAPS SURG CHOLECYSTECTOMY W/CHOLANGIOGRAPHY 07/18/05 Family History FAMILY HISTORY Problem Relation Age of Onset Hypertension Father Diabetes Father Kidney Disease Father dialysis Patient Allergies ALLERGIES Allergen Reactions Diltiazem Other: See Comments dizziness Doxycycline Rash Triamterene-Hydroch* Intolerance Dizziness and vomiting Current Medications Current Outpatient Medications on File Prior to Visit Medication Sig sildenafil (REVATIO) 20 mg tablet May use up to 5 a day metoprolol succinate ER (TOPROL XL) 25 mg 24 hr tablet Take 1 tablet by mouth once daily. lisinopril (ZESTRIL) 40 mg tablet Take 1 tablet by mouth once daily. metFORMIN (GLUCOPHAGE) 500 mg tablet Take 1 tablet by mouth daily with breakfast. chlorthalidone (HYGROTON) 25 mg tablet Take 1 tablet by mouth once daily. doxazosin (CARDURA) 4 mg tablet Take 1 tablet by mouth once daily. blood sugar diagnostic (ONETOUCH VERIO TEST STRIPS) test strip Use as instructed lancets (ONE TOUCH DELICA) 33 gauge Test blood sugar(s) 1-2 times daily. Dx: Type 2 DM - Controlled E11.9 Insulin: No hydrocortisone (ANUSOL-HC) 25 mg suppository 1 Suppository by RECTAL route twice daily as needed (hemorrhoids/bleeding). CPAP autoPAP 5-20 cmH2O, mask, tubing, filters, heated humidity, lifetime supplies. Please do overnight oximetry on PAP one month after patient acclimates to PAP therapy. Dx: LOVE atorvastatin (LIPITOR) 20 mg tablet Take 1 tablet by mouth daily at bedtime. For cholesterol. (Patient not taking: Reported on 07/23/2023) Current Facility-Administered Medications on File Prior to Visit Medication perflutren lipid microspheres 1.3 mL in NaCl (PF) 0.9% 10 mL injection (DEFINITY) sodium chloride 0.9 % (flush) 10 mL (BD POSIFLUSH) perflutren lipid microspheres 1.3 mL in NaCl (PF) 0.9% 10 mL injection (DEFINITY) sodium chloride 0.9 % (flush) 10 mL (BD POSIFLUSH) Social History Social History Tobacco Use Smoking status: Never Smokeless tobacco: Never Vaping Use Vaping Use: Never used Substance Use Topics Alcohol use: Yes Alcohol/week: 1.0 standard drink of alcohol Type (more content not included)... [facility] 06-29-2023 Note HNO ID: [id number] Author: Nneka Rodriguez MD Service: ? Author Type: Physician Type: Progress Notes Filed: 06/29/2023 2:06 PM Note Text: Patient presents with: 6 Month Exam HPI: Patient presents today for office visit for follow up. Refers to getting B/L leg cramps from time to time. Muscle cramps. More towards bottom of legs by ankles. Keeps salt by his bed and will eat a pinch of that. He says this relieves the cramps. Not a good drinker. Discussed hydration with his meds. DM: Reports overall feeling well. Medication side effects: No. Home sugar check frequency/results: checking sugars maybe every other week if he checks at all. Refers to falling away from doing that lately. Would like arm sensor. (Discussed payment issues with not being on insulin.) Hypoglycemic spells: Unknown. Watching diet: No. Unexpected weight loss: No. Polyuria, polydipsia: No. Vision Changes: No. Up to date on eye exam Foot lesions or numbness or pain: No. Would rather work on his diet than adjust meds. HTN: Patient is compliant with meds Yes Monitors bp at home: No. Denies side effects: Yes. Chest pain: No. Dyspnea: Exertion only. Edema: No. Palpitations: No. Syncope: No. Headache: No. Dizziness: No. HYPERLIPIDEMIA: Patient is taking medications: It's been about a month since he's taken his Atorvastatin. States his pharmacy never filled it. Patient is watching diet: No. Patient denies myalgias: Yes. Patient denies gi upset: Yes LOVE: sleeping well. Has followed with echo in the last year. Component Latest Ref Rng AND Units 06/23/2023 Cholesterol, Total <200 mg/dL 235 (H) Triglyceride <150 mg/dL 118 HDL Cholesterol >39 mg/dL 40 Non HDL Cholesterol <130 mg/dL 195 (H) Fasting Time hrs 12 VLDL Cholesterol <30 mg/dL 24 TC:HDL Ratio <5.10 5.88 (H) LDL Cholesterol <100 mg/dL 171 (H) LDL:HDL Ratio <2.54 4.28 (H) Hemoglobin A1C 4.3 - 5.6 % 7.3 (H) Estimated Average Glucose mg/dL 163 MEDICATIONS: Current Outpatient Medications Medication Sig sildenafil (REVATIO) 20 mg tablet May use up to 5 a day metoprolol succinate ER (TOPROL XL) 25 mg 24 hr tablet Take 1 tablet by mouth once daily. lisinopril (ZESTRIL) 40 mg tablet Take 1 tablet by mouth once daily. metFORMIN (GLUCOPHAGE) 500 mg tablet Take 1 tablet by mouth daily with breakfast. chlorthalidone (HYGROTON) 25 mg tablet Take 1 tablet by mouth once daily. doxazosin (CARDURA) 4 mg tablet Take 1 tablet by mouth once daily. atorvastatin (LIPITOR) 20 mg tablet Take 1 tablet by mouth daily at bedtime. For cholesterol. blood sugar diagnostic (ONETOUCH VERIO TEST STRIPS) test strip Use as instructed lancets (ONE TOUCH DELICA) 33 gauge Test blood sugar(s) 1-2 times daily. Dx: Type 2 DM - Controlled E11.9 Insulin: No hydrocortisone (ANUSOL-HC) 25 mg suppository 1 Suppository by RECTAL route twice daily as needed (hemorrhoids/bleeding). CPAP autoPAP 5-20 cmH2O, mask, tubing, filters, heated humidity, lifetime supplies. Please do overnight oximetry on PAP one month after patient acclimates to PAP therapy. Dx: LOVE Current Facility-Administered Medications Medication Dose Route Frequency perflutren lipid microspheres 1.3 mL in NaCl (PF) 0.9% 10 mL injection (DEFINITY) INTRAVENOUS DIRECTED PRN sodium chloride 0.9 % (flush) 10 mL (BD POSIFLUSH) 10 mL INTRAVENOUS DIRECTED PRN perflutren lipid microspheres 1.3 mL in NaCl (PF) 0.9% 10 mL injection (DEFINITY) INTRAVENOUS DIRECTED PRN sodium chloride 0.9 % (flush) 10 mL (BD POSIFLUSH) 10 mL INTRAVENOUS DIRECTED PRN ALLERGIES: ALLERGIES Allergen Reactions Diltiazem Other: See Comments dizziness Doxycycline Rash Triamterene-Hydroch* Intolerance Dizziness and vomiting PAST MEDICAL HISTORY Diagnosis Date Abnormal EKG left atrial enlargment, LVH, non-spec ST and T wave changes. DM (diabetes mellitus) (HCC) Hemorrhage of rectum and anus Hyperlipidemia Unspecified essential hypertension Essential hypertension PAST SURGICAL HISTORY Procedure Laterality Date COLONOSCOPY FLX DX W/COLLJ SPEC WHEN PFRMD 04/19/1999 Colonoscopy COLONOSCOPY FLX DX W/COLLJ SPEC WHEN PFRMD 11/08/10 COLONOSCOPY FLX DX W/COLLJ SPEC WHEN PFRMD 03/03/2016 Colonoscopy LAPS SURG CHOLECYSTECTOMY W/CHOLANGIOGRAPHY 07/18/05 FAMILY HISTORY Problem Relation Age of Onset Hypertension Father Diabetes Father Kidney Disease Father dialysis Social History Tobacco Use Smoking status: Never Smokeless tobacco: Never Vaping Use Vaping Use: Never used Substance Use Topics Alcohol use: Yes Alcohol/week: 1.0 standard drink of alcohol Types: 1 Shots of liquor per week Drug use: No Reviewed current medications, allergies, past medical history, surgical history, family history and social history today. REVIEW OF SYSTEMS All other reviewed and negative other than HPI. HEALTH MAINTENANCE: Reviewed health maintenance issues today and recommended th (more content not included)... [facility] 06-29-2023 Miscellaneous Notes Addended by: NNEKA RODRIGUEZ on: 06/29/2023 02:07 PM Modules accepted: Orders documented in this encounter [facility] 06-29-2023 History of Presen t illness Narrative Patient presents with: 6 Month Exam HPI: Patient presents today for office visit for follow up. Refers to getting B/L leg cramps from time to time. Muscle cramps. More towards bottom of legs by ankles. Keeps salt by his bed and will eat a pinch of that. He says this relieves the cramps. Not a good drinker. Discussed hydration with his meds. DM: Reports overall feeling well. Medication side effects: No. Home sugar check frequency/results: checking sugars maybe every other week if he checks at all. Refers to falling away from doing that lately. Would like arm sensor. (Discussed payment issues with not being on insulin.) Hypoglycemic spells: Unknown. Watching diet: No. Unexpected weight loss: No. Polyuria, polydipsia: No. Vision Changes: No. Up to date on eye exam Foot lesions or numbness or pain: No. Would rather work on his diet than adjust meds. HTN: Patient is compliant with meds Yes Monitors bp at home: No. Denies side effects: Yes. Chest pain: No. Dyspnea: Exertion only. Edema: No. Palpitations: No. Syncope: No. Headache: No. Dizziness: No. HYPERLIPIDEMIA: Patient is taking medications: It's been about a month since he's taken his Atorvastatin. States his pharmacy never filled it. Patient is watching diet: No. Patient denies myalgias: Yes. Patient denies gi upset: Yes LOVE: sleeping well. Has followed with echo in the last year. Component Latest Ref Rng & Units 06/23/2023 Cholesterol, Total <200 mg/dL 235 (H) Triglyceride <150 mg/dL 118 HDL Cholesterol >39 mg/dL 40 Non HDL Cholesterol <130 mg/dL 195 (H) Fasting Time hrs 12 VLDL Cholesterol <30 mg/dL 24 TC:HDL Ratio <5.10 5.88 (H) LDL Cholesterol <100 mg/dL 171 (H) LDL:HDL Ratio <2.54 4.28 (H) Hemoglobin A1C 4.3 - 5.6 % 7.3 (H) Estimated Average Glucose mg/dL 163 MEDICATIONS: Current Outpatient Medications Medication Sig sildenafil (REVATIO) 20 mg tablet May use up to 5 a day metoprolol succinate ER (TOPROL XL) 25 mg 24 hr tablet Take 1 tablet by mouth once daily. lisinopril (ZESTRIL) 40 mg tablet Take 1 tablet by mouth once daily. metFORMIN (GLUCOPHAGE) 500 mg tablet Take 1 tablet by mouth daily with breakfast. chlorthalidone (HYGROTON) 25 mg tablet Take 1 tablet by mouth once daily. doxazosin (CARDURA) 4 mg tablet Take 1 tablet by mouth once daily. atorvastatin (LIPITOR) 20 mg tablet Take 1 tablet by mouth daily at bedtime. For cholesterol. blood sugar diagnostic ([employer] VERIO TEST STRIPS) test strip Use as instructed lancets (ONE TOUCH DELGentis) 33 gauge Test blood sugar(s) 1-2 times daily. Dx: Type 2 DM - Controlled E11.9 Insulin: No hydrocortisone (ANUSOL-HC) 25 mg suppository 1 Suppository by RECTAL route twice daily as needed (hemorrhoids/bleeding). CPAP autoPAP 5-20 cmH2O, mask, tubing, filters, heated humidity, lifetime supplies. Please do overnight oximetry on PAP one month after patient acclimates to PAP therapy. Dx: LOVE Current Facility-Administered Medications Medication Dose Route Frequency perflutren lipid microspheres 1.3 mL in NaCl (PF) 0.9% 10 mL injection (DEFINITY) INTRAVENOUS DIRECTED PRN sodium chloride 0.9 % (flush) 10 mL (BD POSIFLUSH) 10 mL INTRAVENOUS DIRECTED PRN perflutren lipid microspheres 1.3 mL in NaCl (PF) 0.9% 10 mL injection (DEFINITY) INTRAVENOUS DIRECTED PRN sodium chloride 0.9 % (flush) 10 mL (BD POSIFLUSH) 10 mL INTRAVENOUS DIRECTED PRN ALLERGIES: ALLERGIES Allergen Reactions Diltiazem Other: See Comments dizziness Doxycycline Rash Triamterene-Hydroch* Intolerance Dizziness and vomiting PAST MEDICAL HISTORY Diagnosis Date Abnormal EKG left atrial enlargment, LVH, non-spec ST and T wave changes. DM (diabetes mellitus) (HCC) Hemorrhage of rectum and anus Hyperlipidemia Unspecified essential hypertension Essential hypertension PAST SURGICAL HISTORY Procedure Laterality Date COLONOSCOPY FLX DX W/COLLJ SPEC WHEN PFRMD 04/19/1999 Colonoscopy COLONOSCOPY FLX DX W/COLLJ SPEC WHEN PFRMD 11/08/10 COLONOSCOPY FLX DX W/COLLJ SPEC WHEN PFRMD 03/03/2016 Colonoscopy LAPS SURG CHOLECYSTECTOMY W/CHOLANGIOGRAPHY 07/18/05 FAMILY HISTORY Problem Relation Age of Onset Hypertension Father Diabetes Father Kidney Disease Father dialysis Social History Tobacco Use Smoking status: Never Smokeless tobacco: Never Vaping Use Vaping Use: Never used Substance Use Topics Alcohol use: Yes Alcohol/week: 1.0 standard drink of alcohol Types: 1 Shots of liquor per week Drug use: No Reviewed current medications, allergies, past medical history, surgical history, family history and social history today. REVIEW OF SYSTEMS All other reviewed and negative other than HPI. HEALTH MAINTENANCE: Reviewed health maintenance issues today and recommended the following in detail. RSV Vaccine(1 - 1-dose 60+ series) Never done Diabetic Foot Exam due on 10/14/2022 Influenza Vaccine(1) due on 03/16/2023 Covid-19 Vaccine(2022- season) due on 03/16/2023 VITALS: BP 116/68 Pulse (!) 51 Ht 177.8 cm (5' 10 ) Wt 107 kg (236 lb) SpO2 97% BMI 33.86 kg/m Last 4 Encounter Wt Readings: Date: Wt: 01/26/2023 105.7 kg (233 lb) 12/22/2022 107 kg (236 lb) 07/14/2022 107 kg (236 lb) 12/30/2021 107.5 kg (237 lb) PHYSICAL EXAMINATION: General appearance: Well appearing, alert, in no acute distress, well-hydrated, well nourished. Skin: Skin color, texture, turgor normal, no suspicious rashes or lesions Head: Normocephalic, no masses, lesions, tenderness or abnormalities Lungs: Lungs clear to auscultation. No wheezing, rhonchi, rales Heart: RRR without murmur, gallop, or rubs. No ectopy Abdomen: Normal abdominal exam, Abdomen soft, non-tender. Bowel sounds normal. No masses, organomegaly Extremities: No deformities, edema, skin discoloration, clubbing or cyanosis. Good capillary refill. Musculoskeletal: No joint swelling, deformity, or tenderness Feet:Shoes and socks removed and No deformities, ulcers, calluses normal pps and monofilament. ASSESSMENT/PLAN: 1. Essential hypertension, benign - ICD9: 401.1, ICD10: I10 (primary diagnosis) - Controlled Follow labs. - LIPID PANEL BASIC 2. Mixed hyperlipidemia - ICD9: 272.2, ICD10: E78.2 - Controlled - Continue current medications - ATORVASTATIN 20 MG TABLET 3. Ascending aorta dilatation (HCC) - ICD9: 447.71, ICD10: I77.810 - stable. - CONSULT TO CARDIOLOGY 4. LOVE (obstructive sleep apnea) - ICD9: 327.23, ICD10: G47.33 - stabl.3 5. Type 2 diabetes mellitus without complication, without long-term current use of insulin (HCC) - ICD9: 250.00, ICD10: E11.9 - recheck labs in three months. - HGB A1C 6. Cramp in limb - ICD9: 729.82, ICD10: R25.2 - push fluids. Check labs. - CK CREATINE KINASE - CBC + DIFF - BASIC METABOLIC PNL - MAGNESIUM BLD Nneka Rodriguez MD documented in this encounter [facility] 06-07-2023 Miscellaneous Notes Has appt scheduled. Esha Costello APRN.[employer] 2nd attempt left message to return call to schedule 6 mo follow echo 1st attempt left message to return call to schedule 6 mo follow echo Pt notified. He verbalized understanding. Please assist pt with scheduling repeat ECHO to be one in 6 months (July) Jacob Gallardo LPN Can please let patient know that I received his echocardiogram. The heart shows a little thickening around the left ventricle, which can happen with high blood pressure. So, it is important to maintain good blood pressure control to prevent that from progressing. The strength of the heart is good/normal. There is mild thickening of the aortic valve -- this shouldn't be causing any problems. We just have to keep an eye on this to ensure that it is not worsening. It does show that his aorta is a little dilated. Again, it is important to maintain good blood pressure control to keep this from worsening. When we first find this, I like to repeat the echocardiogram in 6 months to ensure nothing is changing. As long as it is stable, then should repeat yearly to keep an eye on this. The order is in for the repeat in 6 months. Esha Costello APRN.ABDI documented in this encounter [facility] 05-16-2023 Note HNO ID: [id number] Author: Chantal Sosa MD Service: ? Author Type: Physician Type: Progress Notes Filed: 05/16/2023 6:26 AM Note Text: This is a preoperative appointment for Mr. Francis. Please see my previous notes. He has severe bilateral knee osteoarthritis. He has substantial varus deformity on both sides. 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 Updated imaging reveals bilateral severe knee osteoarthritis with complete joint space collapse, subchondral sclerosis and osteophyte formation. On physical examination he has antalgic gait to the right side but has pain in both knees. He has a significant varus alignment which is only partly correctable on both sides, with an effusion, and tenderness over the medial joint line lateral joint line and medial femoral condyle. He does have patellofemoral crepitance which is also painful. On the right side his range of motion is 10 degrees to 115 degrees on the left side is 5 degrees to 120 degrees. He has full strength and sensation throughout. We have again reviewed joint replacement surgery at long length. We reviewed risks, benefits, expected outcomes recovery and potential complications. 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 All questions were answered today. Informed consent has been signed. We will plan to start with robotic surgery on the right side in the spring, transition to the left side perhaps a year later depending on how he is doing. I spent a total of approximately 15 minutes on the date of the service which included preparing to see the patient, [id number] patient care, completing clinical documentation, obtaining and/or reviewing separately obtained history, performing a medically appropriate examination, counseling and educating the patient/family/caregiver, and care coordination (not separately reported). Chantal Sosa MD Orthopaedic Surgery [facility] 05-16-2023 History of Presen t illness Narrative This is a preoperative appointment for Mr. Francis. Please see my previous notes. He has severe bilateral knee osteoarthritis. He has substantial varus deformity on both sides. 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 Updated imaging reveals bilateral severe knee osteoarthritis with complete joint space collapse, subchondral sclerosis and osteophyte formation. On physical examination he has antalgic gait to the right side but has pain in both knees. He has a significant varus alignment which is only partly correctable on both sides, with an effusion, and tenderness over the medial joint line lateral joint line and medial femoral condyle. He does have patellofemoral crepitance which is also painful. On the right side his range of motion is 10 degrees to 115 degrees on the left side is 5 degrees to 120 degrees. He has full strength and sensation throughout. We have again reviewed joint replacement surgery at long length. We reviewed risks, benefits, expected outcomes recovery and potential complications. 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 All questions were answered today. Informed consent has been signed. We will plan to start with robotic surgery on the right side in the spring, transition to the left side perhaps a year later depending on how he is doing. I spent a total of approximately 15 minutes on the date of the service which included preparing to see the patient, [id number] patient care, completing clinical documentation, obtaining and/or reviewing separately obtained history, performing a medically appropriate examination, counseling and educating the patient/family/caregiver, and care coordination (not separately reported). Chantal Sosa MD Orthopaedic Surgery documented in this encounter [facility] 05-15-2023 Note HNO ID: [id number] Author: Brenda Londono Tech Service: ? Author Type: Superintendent Plant Protection Type: Progress Notes Filed: 05/15/2023 2:50 PM Note Text: Radiology Service Progress Note PATIENT NAME: Nneka Francis DATE OF SERVICE: May 15, 2023 TIME: 2:50 PM PATIENT IDENTITY VERIFICATION COMPLETED USING TWO (2) IDENTIFIERS: Name and Date of confirmed by patient verbally. FALL SCREENING: Has the patient had 2 falls in the last year or 1 fall with injury or currently using an Ambulatory Assistive Device (Walker, Cane, Wheelchair, Crutches, etc.)? No PATIENT GENDER DATA: Male PATIENT RELEVANT IMPLANT DATA REVIEWED: Not Applicable RADIOLOGY DEPARTMENT: General X-ray: Exam(s) Completed: Lower Extremity X-Ray(s): Knee, AP / Lat / Tunne / Merchant Right and Wt. Bearing PERIPHERAL IV DATA: Not applicable SIGNED BY: Alonzo Ballesteros May 15, 2023 2:50 PM [facility] 04-02-2023 Miscellaneous Notes Patient has been scheduled, thank you Juanita! Patient is established with Dr. Sosa for his knees. When someone has time, would you please contact this patient and assist him with an appointment? Thank you. documented in this encounter [facility] 01-26-2023 Note HNO ID: [id number] Author: Esha Costello APRN.ABDI Service: ? Author Type: Nurse Practitioner Type: Progress Notes Filed: 01/26/2023 4:35 PM Note Text: This is a 63 year old male who presents today with: Patient presents with: Recheck: 1 month follow up HISTORY OF PRESENT ILLNESS: Nneka Francis is a 63 year old male. Patient presents with: Recheck: 1 month follow up Pt presents today for recheck. HTN: Patient is compliant with meds Yes Monitors bp at home: No. Denies side effects: No. Chest pain: No. Dyspnea: No. Edema: No. Palpitations: No. Syncope: No. Headache: No. Dizziness: No. PAST MEDICAL HISTORY: PAST MEDICAL HISTORY Diagnosis Date Abnormal EKG left atrial enlargment, LVH, non-spec ST and T wave changes. DM (diabetes mellitus) (HCC) Hemorrhage of rectum and anus Hyperlipidemia Unspecified essential hypertension Essential hypertension PAST SURGICAL HISTORY Procedure Laterality Date COLONOSCOPY FLX DX W/COLLJ SPEC WHEN PFRMD 04/19/1999 Colonoscopy COLONOSCOPY FLX DX W/COLLJ SPEC WHEN PFRMD 11/08/10 COLONOSCOPY FLX DX W/COLLJ SPEC WHEN PFRMD 03/03/2016 Colonoscopy LAPS SURG CHOLECYSTECTOMY W/CHOLANGIOGRAPHY 07/18/05 ALLERGIES Diltiazem, Doxycycline, and Triamterene-Hydrochlorothiazid MEDICATIONS Current Outpatient Medications Medication Sig metoprolol succinate ER (TOPROL XL) 25 mg 24 hr tablet Take 1 tablet by mouth once daily. lisinopril (ZESTRIL) 40 mg tablet Take 1 tablet by mouth once daily. metFORMIN (GLUCOPHAGE) 500 mg tablet Take 1 tablet by mouth daily with breakfast. chlorthalidone (HYGROTON) 25 mg tablet Take 1 tablet by mouth once daily. doxazosin (CARDURA) 4 mg tablet Take 1 tablet by mouth once daily. atorvastatin (LIPITOR) 20 mg tablet Take 1 tablet by mouth daily at bedtime. For cholesterol. sildenafil (REVATIO) 20 mg tablet May use up to 5 a day TURMERIC ORAL Take by mouth. blood sugar diagnostic (ONETOUCH VERIO TEST STRIPS) test strip Use as instructed lancets (ONE TOUCH DELICA) 33 gauge Test blood sugar(s) 1-2 times daily. Dx: Type 2 DM - Controlled E11.9 Insulin: No MV,MINERALS/FA/LYCOPENE/GINKGO (ONE-A-DAY MEN'S 50+ ADVANTAGE ORAL) Take by mouth once daily. CPAP autoPAP 5-20 cmH2O, mask, tubing, filters, heated humidity, lifetime supplies. Please do overnight oximetry on PAP one month after patient acclimates to PAP therapy. Dx: LOVE hydrocortisone (ANUSOL-HC) 25 mg suppository 1 Suppository by RECTAL route twice daily as needed (hemorrhoids/bleeding). B Complex Vitamins capsule Take 1 capsule by mouth once daily. No current facility-administered medications for this visit. FAMILY HISTORY Problem Relation Age of Onset Hypertension Father Diabetes Father Kidney Disease Father dialysis Social History Tobacco Use Smoking status: Never Smokeless tobacco: Never Vaping Use Vaping Use: Never used Substance Use Topics Alcohol use: Yes Alcohol/week: 1.0 standard drink of alcohol Types: 1 Shots of liquor per week Drug use: No EXAM: BP 108/70 Pulse (!) 56 Resp 16 Wt 105.7 kg (233 lb) SpO2 97% BMI 33.43 kg/m? 118/68 PHYSICAL EXAM: General Appearance: Well appearing, alert, in no acute distress, well-hydrated, well nourished.. Skin: Skin color, texture, turgor normal, no suspicious rashes or lesions. Head: Normocephalic, no masses, lesions, tenderness or abnormalities. Eyes: Anicteric sclera. Pupils are equally round and reactive to light. Extraocular movements are intact. . Lungs: Lungs clear to auscultation. No wheezing, rhonchi, rales.. Heart: regularly irregular without murmur, gallop, or rubs. No ectopy. Extremities: No deformities, edema, skin discoloration, clubbing or cyanosis. Good capillary refill. . Neurologic: Gait normal. ASSESSMENT/PLAN: 1. Essential hypertension, benign - ICD9: 401.1, ICD10: I10 (primary diagnosis) - Controlled - Continue current medications - Recommend home blood pressure monitoring, to bring results to next visit - Encouraged sodium restriction, DASH or Mediterranean diet - Recommend regular aerobic exercise 2. Irregular heart rate - ICD9: 427.9, ICD10: I49.9 SR with bigeminal PACs. - ECG COMPLETE Discussed treatment plan and patient voices understanding. Patient's questions answered appropriately. Medications and potential side effects were discussed and patient voices understanding. Return to the office as scheduled or as needed for worsening/no improvement. Esha Costello APRN.[facility] 01-26-2023 History of Presen t illness Narrative This is a 63 year old male who presents today with: Patient presents with: Recheck: 1 month follow up HISTORY OF PRESENT ILLNESS: Nneka Francis is a 63 year old male. Patient presents with: Recheck: 1 month follow up Pt presents today for recheck. HTN: Patient is compliant with meds Yes Monitors bp at home: No. Denies side effects: No. Chest pain: No. Dyspnea: No. Edema: No. Palpitations: No. Syncope: No. Headache: No. Dizziness: No. PAST MEDICAL HISTORY: PAST MEDICAL HISTORY Diagnosis Date Abnormal EKG left atrial enlargment, LVH, non-spec ST and T wave changes. DM (diabetes mellitus) (HCC) Hemorrhage of rectum and anus Hyperlipidemia Unspecified essential hypertension Essential hypertension PAST SURGICAL HISTORY Procedure Laterality Date COLONOSCOPY FLX DX W/COLLJ SPEC WHEN PFRMD 04/19/1999 Colonoscopy COLONOSCOPY FLX DX W/COLLJ SPEC WHEN PFRMD 11/08/10 COLONOSCOPY FLX DX W/COLLJ SPEC WHEN PFRMD 03/03/2016 Colonoscopy LAPS SURG CHOLECYSTECTOMY W/CHOLANGIOGRAPHY 07/18/05 ALLERGIES Diltiazem, Doxycycline, and Triamterene-Hydrochlorothiazid MEDICATIONS Current Outpatient Medications Medication Sig metoprolol succinate ER (TOPROL XL) 25 mg 24 hr tablet Take 1 tablet by mouth once daily. lisinopril (ZESTRIL) 40 mg tablet Take 1 tablet by mouth once daily. metFORMIN (GLUCOPHAGE) 500 mg tablet Take 1 tablet by mouth daily with breakfast. chlorthalidone (HYGROTON) 25 mg tablet Take 1 tablet by mouth once daily. doxazosin (CARDURA) 4 mg tablet Take 1 tablet by mouth once daily. atorvastatin (LIPITOR) 20 mg tablet Take 1 tablet by mouth daily at bedtime. For cholesterol. sildenafil (REVATIO) 20 mg tablet May use up to 5 a day TURMERIC ORAL Take by mouth. blood sugar diagnostic (ONETOUCH VERIO TEST STRIPS) test strip Use as instructed lancets (ONE TOUCH DELICA) 33 gauge Test blood sugar(s) 1-2 times daily. Dx: Type 2 DM - Controlled E11.9 Insulin: No MV,MINERALS/FA/LYCOPENE/GINKGO (ONE-A-DAY MEN'S 50+ ADVANTAGE ORAL) Take by mouth once daily. CPAP autoPAP 5-20 cmH2O, mask, tubing, filters, heated humidity, lifetime supplies. Please do overnight oximetry on PAP one month after patient acclimates to PAP therapy. Dx: LOVE hydrocortisone (ANUSOL-HC) 25 mg suppository 1 Suppository by RECTAL route twice daily as needed (hemorrhoids/bleeding). B Complex Vitamins capsule Take 1 capsule by mouth once daily. No current facility-administered medications for this visit. FAMILY HISTORY Problem Relation Age of Onset Hypertension Father Diabetes Father Kidney Disease Father dialysis Social History Tobacco Use Smoking status: Never Smokeless tobacco: Never Vaping Use Vaping Use: Never used Substance Use Topics Alcohol use: Yes Alcohol/week: 1.0 standard drink of alcohol Types: 1 Shots of liquor per week Drug use: No EXAM: BP 108/70 Pulse (!) 56 Resp 16 Wt 105.7 kg (233 lb) SpO2 97% BMI 33.43 kg/m 118/68 PHYSICAL EXAM: General Appearance: Well appearing, alert, in no acute distress, well-hydrated, well nourished.. Skin: Skin color, texture, turgor normal, no suspicious rashes or lesions. Head: Normocephalic, no masses, lesions, tenderness or abnormalities. Eyes: Anicteric sclera. Pupils are equally round and reactive to light. Extraocular movements are intact. . Lungs: Lungs clear to auscultation. No wheezing, rhonchi, rales.. Heart: regularly irregular without murmur, gallop, or rubs. No ectopy. Extremities: No deformities, edema, skin discoloration, clubbing or cyanosis. Good capillary refill. . Neurologic: Gait normal. ASSESSMENT/PLAN: 1. Essential hypertension, benign - ICD9: 401.1, ICD10: I10 (primary diagnosis) - Controlled - Continue current medications - Recommend home blood pressure monitoring, to bring results to next visit - Encouraged sodium restriction, DASH or Mediterranean diet - Recommend regular aerobic exercise 2. Irregular heart rate - ICD9: 427.9, ICD10: I49.9 SR with bigeminal PACs. - ECG COMPLETE Discussed treatment plan and patient voices understanding. Patient's questions answered appropriately. Medications and potential side effects were discussed and patient voices understanding. Return to the office as scheduled or as needed for worsening/no improvement. Esha Costello APRN.POWERHOUSE [employer]ER documented in this encounter [facility] 12-22-2022 Note HNO ID: [id number] Author: Nneka Rodriguez MD Service: ? Author Type: Physician Type: Progress Notes Filed: 12/22/2022 2:43 PM Note Text: Patient presents with: Hypertension Diabetes HPI: Patient presents today for office visit for follow up. DM: Reports overall feeling well. Medication side effects: No. Home sugar check frequency/results:has everything to do so but not checking Hypoglycemic spells: No. Watching diet: No. Unexpected weight loss: No. Polyuria, polydipsia: No. Vision Changes: No issues with vision. Watering eyes. Foot lesions or numbness or pain: No. HTN: Patient is compliant with meds No.Hasn't been good with meds. Working a lot lately. Monitors bp at home: has not been but can if needs to. Denies side effects: Yes. Chest pain: No. Dyspnea: No. Edema: No. Palpitations: No. Syncope: No. Headache: No. Dizziness: No. HYPERLIPIDEMIA: Patient is taking medications: not regular. Discussed importance of compliance. Patient is watching diet: No. Patient denies myalgias: complains of calf issues. Some days feels like has 10 pound weights on each knees but not always. Does use voltaren gel. Plans to call ortho for knee replacement at beginning of the year. Patient denies gi upset: Yes Not using his cpap much. Discussed resuming. Component Latest Ref Rng AND Units 12/16/2022 WBC 3.70 - 11.00 k/uL 6.77 RBC 4.20 - 6.00 m/uL 5.77 Hemoglobin 13.0 - 17.0 g/dL 15.5 Hematocrit 39.0 - 51.0 % 47.2 MCV 80.0 - 100.0 fL 81.8 MCH 26.0 - 34.0 pg 26.9 MCHC 30.5 - 36.0 g/dL 32.8 RDW-CV 11.5 - 15.0 % 13.8 Platelet Count 150 - 400 k/uL 243 MPV 9.0 - 12.7 fL 10.6 Neut% % 42.8 Abs Neut (ANC) 1.45 - 7.50 k/uL 2.90 Lymph% % 39.4 Abs Lymph 1.00 - 4.00 k/uL 2.67 [place]% % 11.4 Abs [place] <0.87 k/uL 0.77 Eosin% % 4.3 Abs Eosin <0.46 k/uL 0.29 Baso% % 0.9 Abs Baso <0.11 k/uL 0.06 Immature Gran % % 1.2 IMMATURE GRANS (ABS) <0.10 k/uL 0.08 NRBC /100 WBC 0.0 Absolute nRBC <0.01 k/uL <0.01 DTYPE Auto Protein, Total 6.3 - 8.0 g/dL 7.7 Albumin 3.9 - 4.9 g/dL 4.6 Calcium 8.5 - 10.2 mg/dL 10.0 Bilirubin, Total 0.2 - 1.3 mg/dL 0.3 Alkaline Phosphatase 38 - 113 U/L 62 AST 14 - 40 U/L 24 ALT 10 - 54 U/L 37 Glucose 74 - 99 mg/dL 121 (H) BUN 9 - 24 mg/dL 18 Creatinine 0.73 - 1.22 mg/dL 1.00 Sodium 136 - 144 mmol/L 140 Potassium 3.7 - 5.1 mmol/L 3.9 Chloride 97 - 105 mmol/L 103 CO2 22 - 30 mmol/L 24 Anion Gap 9 - 18 mmol/L 13 eGFR >=60 mL/min/1.73mA? 85 Cholesterol, Total <200 mg/dL 241 (H) Triglyceride <150 mg/dL 129 HDL Cholesterol >39 mg/dL 44 Non HDL Cholesterol <130 mg/dL 197 (H) Fasting Time hrs 12 VLDL Cholesterol <30 mg/dL 26 TC:HDL Ratio <5.10 5.48 (H) LDL Cholesterol <100 mg/dL 171 (H) LDL:HDL Ratio <2.54 3.89 (H) Creatinine, Ur Random (UCRR) 20.0 - 300.0 mg/dL 169.9 Albumin, Urine Random mg/L 44.6 Albumin/Creat Ratio <30 mg/g 26 Hemoglobin A1C 4.3 - 5.6 % 6.9 (H) Estimated Average Glucose mg/dL 151 PSA Screening <2.60 ng/mL 1.20 MEDICATIONS: Current Outpatient Medications Medication Sig metoprolol succinate ER (TOPROL XL) 25 mg 24 hr tablet Take 1 tablet by mouth once daily. lisinopril (ZESTRIL, PRINIVIL) 40 mg tablet Take 1 tablet by mouth once daily. metFORMIN (GLUCOPHAGE) 500 mg tablet Take 1 tablet by mouth daily with breakfast. chlorthalidone (HYGROTON) 25 mg tablet Take 1 tablet by mouth once daily. doxazosin (CARDURA) 4 mg tablet Take 1 tablet by mouth once daily. atorvastatin (LIPITOR) 20 mg tablet Take 1 tablet by mouth daily at bedtime. For cholesterol. sildenafil (REVATIO) 20 mg tablet May use up to 5 a day TURMERIC ORAL Take by mouth. blood sugar diagnostic ([employer] VERIO TEST STRIPS) test strip Use as instructed lancets (ONE TOUCH DELGentis) 33 gauge Test blood sugar(s) 1-2 times daily. Dx: Type 2 DM - Controlled E11.9 Insulin: No meclizine (ANTIVERT) 25 mg tab Take 1 tablet by mouth three times daily. (Patient not taking: Reported on 09/29/2021 ) hydrocortisone (ANUSOL-HC) 25 mg suppository 1 Suppository by RECTAL route twice daily as needed (hemorrhoids/bleeding). MV,MINERALS/FA/LYCOPENE/GINKGO (ONE-A-DAY MEN'S 50+ ADVANTAGE ORAL) Take by mouth once daily. B Complex Vitamins capsule Take 1 capsule by mouth once daily. CPAP autoPAP 5-20 cmH2O, mask, tubing, filters, heated humidity, lifetime supplies. Please do overnight oximetry on PAP one month after patient acclimates to PAP therapy. Dx: LOVE No current facility-administered medications for this visit. ALLERGIES: ALLERGIES Allergen Reactions Diltiazem Other: See Comments dizziness Doxycycline Rash Triamterene-Hydroch* Intolerance Dizziness and vomiting PAST MEDICAL HISTORY Diagnosis Date Abnormal EKG left atrial enlargment, LVH, non-spec ST and T wave changes. DM (diabetes mellitus) (HCC) Hemorrhage of rectum and anus Hyperlipidemia Unspecified essential hypertension Essential hypertension (more content not included)... [facility] 08-11-2022 Note HNO ID: [id number] Author: Gema Alvarez LPN Service: ? Author Type: ? Type: Progress Notes Filed: 08/11/2022 3:22 PM Note Text: Manual Readin/74 Pulse: 64 Reason for blood pressure check - Last BP elevated Patient is: Taking medication as prescribed Yes Took medication today Yes If no, date medication last taken N/A Experiencing side effects No BP was elevated at last appt 07/14/22. No BP medication changes were made at that time. He had not taken his medications at the time of last appt; has taken them today. Denies any chest pain, shortness of breath, dizziness, or headaches. Drinks decaf. No personal history of tobacco use; no current exposure. Alert and oriented. Pt has been identified by name and birthdate: Yes Allergies reviewed: Yes Latex allergy: no. Medication - prescribed and OTC reviewed and updated: Yes Do you need any prescription refills prior to your next visit: No Health Maintenance: Reviewed and not up to date and provider notified Patient advised to continue with current medications and would be contacted if any further instructions after review by PCP. Gema Alvarez LPN [facility] 08-11-2022 Miscellaneous Notes Patient called and notified that blood pressure is good. Voiced understanding. Belinda Pulido RN Placed call to patient with no answer. Left message advising patient BP was good. Told to call back with any questions or concerns. Laurie Ivey Bp is ok. Manual Readin/74 Pulse: 64 Reason for blood pressure check - Last BP elevated Patient is: Taking medication as prescribed Yes Took medication today Yes If no, date medication last taken N/A Experiencing side effects No BP was elevated at last appt 07/14/22. No BP medication changes were made at that time. He had not taken his medications at the time of last appt; has taken them today. Denies any chest pain, shortness of breath, dizziness, or headaches. Drinks decaf. No personal history of tobacco use; no current exposure. Alert and oriented. Pt has been identified by name and birthdate: Yes Allergies reviewed: Yes Latex allergy: no. Medication - prescribed and OTC reviewed and updated: Yes Do you need any prescription refills prior to your next visit: No Health Maintenance: Reviewed and not up to date and provider notified Patient advised to continue with current medications and would be contacted if any further instructions after review by PCP. Gema Alvarez LPN documented in this encounter [facility] 05-01-2022 Miscellaneous Notes Patient phones requesting refills as follows: Requested Prescriptions Pending Prescriptions Disp Refills sildenafil (REVATIO) 20 mg tablet 25 tablet 5 Sig: May use up to 5 a day JAMAAL 12/30/21 07/14/22 Please review and advise. Jacob Gallardo LPN documented in this encounter [facility] 01-09-2022 Miscellaneous Notes JAMAAL 12/30/21 07/14/22 Patient has been identified by name and date of : Yes Pending Prescriptions Disp Refills METOPROLOL SUCCINATE ER 25 MG TABLET,EXTENDED RELEASE 24 HR 30 tablet 5 Sig: Take 1 tablet by mouth once daily. MILLER: No RX INSTRUCTIONS: Pharmacy initiated this request. No need to notify patient. [employer] documented in this encounter [facility] 12-30-2021 History of Presen t illness Narrative No chief complaint on file. HPI: Patient presents today for office visit for follow up. HYPERTENSION:has been out of the chlorthalidone for a month. Has not been checking his bp. No chest pain. No shortness of breath. No dizziness. No edema. LOVE:still using his cpap. CARDIO:no recent palpitations. HLD:recommended he increase his meds. He declines. Wants to work on diet and exercise. DM:sugars are stable. No hypoglycemic spells. ORTHO:saw Dr. Sosa. He is considering knee replacement. Component Latest Ref Rng & Units 12/24/2021 WBC 3.70 - 11.00 k/uL 5.41 RBC 4.20 - 6.00 m/uL 5.22 Hemoglobin 13.0 - 17.0 g/dL 14.3 Hematocrit 39.0 - 51.0 % 45.8 MCV 80.0 - 100.0 fL 87.7 MCH 26.0 - 34.0 pg 27.4 MCHC 30.5 - 36.0 g/dL 31.2 RDW-CV 11.5 - 15.0 % 14.8 Platelet Count 150 - 400 k/uL 234 MPV 9.0 - 12.7 fL 10.5 Neut% % 43.4 Abs Neut (ANC) 1.45 - 7.50 k/uL 2.35 Lymph% % 38.6 Abs Lymph 1.00 - 4.00 k/uL 2.09 [place]% % 12.4 Abs [place] <0.87 k/uL 0.67 Eosin% % 4.3 Abs Eosin <0.46 k/uL 0.23 Baso% % 0.6 Abs Baso <0.11 k/uL 0.03 Immature Gran % % 0.7 IMMATURE GRANS (ABS) <0.10 k/uL 0.04 NRBC /100 WBC 0.0 Absolute nRBC <0.01 k/uL <0.01 DTYPE Auto Protein, Total 6.3 - 8.0 g/dL 7.0 Albumin 3.9 - 4.9 g/dL 4.1 Calcium 8.5 - 10.2 mg/dL 9.5 Bilirubin, Total 0.2 - 1.3 mg/dL 0.4 Alkaline Phosphatase 38 - 113 U/L 55 AST 14 - 40 U/L 22 ALT 10 - 54 U/L 28 Glucose 74 - 99 mg/dL 103 (H) BUN 9 - 24 mg/dL 16 Creatinine 0.73 - 1.22 mg/dL 1.05 Sodium 136 - 144 mmol/L 139 Potassium 3.7 - 5.1 mmol/L 4.3 Chloride 97 - 105 mmol/L 107 (H) CO2 22 - 30 mmol/L 23 Anion Gap 9 - 18 mmol/L 9 eGFR >=60 mL/min/1.73m 81 Cholesterol, Total <200 mg/dL 169 Triglyceride <150 mg/dL 76 HDL Cholesterol >39 mg/dL 35 (L) Non HDL Cholesterol <130 mg/dL 134 (H) Fasting Time hrs 12 VLDL Cholesterol <30 mg/dL 15 TC:HDL Ratio <5.10 4.83 LDL Cholesterol <100 mg/dL 119 (H) LDL:HDL Ratio <2.54 3.40 (H) Creatinine, Ur Random (UCRR) 20.0 - 300.0 mg/dL 233.1 Albumin, Urine Random mg/L 14.8 Albumin/Creat Ratio <30 mg/g 6 Hemoglobin A1C 4.3 - 5.6 % 6.7 (H) Estimated Average Glucose mg/dL 146 MEDICATIONS: Current Outpatient Medications Medication Sig chlorthalidone (HYGROTON) 25 mg tablet Take 1 tablet by mouth once daily. TURMERIC ORAL Take by mouth. doxazosin (CARDURA) 4 mg tablet Take 1 tablet by mouth once daily. metFORMIN (GLUCOPHAGE) 500 mg tablet Take 1 tablet by mouth daily with breakfast. lisinopril (ZESTRIL, PRINIVIL) 40 mg tablet Take 1 tablet by mouth once daily. metoprolol succinate ER (TOPROL XL) 25 mg 24 hr tablet Take 1 tablet by mouth once daily. atorvastatin (LIPITOR) 20 mg tablet Take 1 tablet by mouth daily at bedtime. For cholesterol. MV,MINERALS/FA/LYCOPENE/GINKGO (ONE-A-DAY MEN'S 50+ ADVANTAGE ORAL) Take by mouth once daily. B Complex Vitamins capsule Take 1 capsule by mouth once daily. CPAP autoPAP 5-20 cmH2O, mask, tubing, filters, heated humidity, lifetime supplies. Please do overnight oximetry on PAP one month after patient acclimates to PAP therapy. Dx: LOVE blood sugar diagnostic (ONETOUCH VERIO TEST STRIPS) test strip Use as instructed lancets (ONE TOUCH DELICA) 33 gauge Test blood sugar(s) 1-2 times daily. Dx: Type 2 DM - Controlled E11.9 Insulin: No meclizine (ANTIVERT) 25 mg tab Take 1 tablet by mouth three times daily. (Patient not taking: Reported on 09/29/2021 ) sildenafil (REVATIO) 20 mg tablet May use up to 5 a day gluc le/chondro le A/vit C/Mn (GLUCOSAMINE 1500 COMPLEX ORAL) Take by mouth. (Patient not taking: Reported on 05/13/2021 ) hydrocortisone (ANUSOL-HC) 25 mg suppository 1 Suppository by RECTAL route twice daily as needed (hemorrhoids/bleeding). No current facility-administered medications for this visit. ALLERGIES: ALLERGIES Allergen Reactions Diltiazem Other: See Comments dizziness Doxycycline Rash Triamterene-Hydroch* Intolerance Dizziness and vomiting PAST MEDICAL HISTORY Diagnosis Date Abnormal EKG left atrial enlargment, LVH, non-spec ST and T wave changes. DM (diabetes mellitus) (HCC) Hemorrhage of rectum and anus Hyperlipidemia Unspecified essential hypertension Essential hypertension PAST SURGICAL HISTORY Procedure Laterality Date COLONOSCOPY FLX DX W/COLLJ SPEC WHEN PFRMD 04/19/1999 Colonoscopy COLONOSCOPY FLX DX W/COLLJ SPEC WHEN PFRMD 11/08/10 COLONOSCOPY FLX DX W/COLLJ SPEC WHEN PFRMD 03/03/2016 Colonoscopy LAPS SURG CHOLECYSTECTOMY W/CHOLANGIOGRAPHY 07/18/05 FAMILY HISTORY Problem Relation Age of Onset Hypertension Father Diabetes Father Kidney Disease Father dialysis Social History Tobacco Use Smoking status: Never Smoker Smokeless tobacco: Never Used Vaping Use Vaping Use: Never used Substance Use Topics Alcohol use: Yes Alcohol/week: 1.0 standard drink Types: 1 Shots of liquor per week Drug use: No Reviewed current medications, allergies, past medical history, surgical history, family history and social history today. REVIEW OF SYSTEMS All other reviewed and negative other than HPI. HEALTH MAINTENANCE: Reviewed health maintenance issues today and recommended the following in detail. DILATED RETINAL EXAM -done in the last year. COVID-19 VACCINE(3 - Booster for Moderna series) due on 05/02/2021 DIABETIC FOOT EXAM-sees podiatry. Was in October. Declines hiv VITALS: BP 152/82 Pulse 72 Wt 107.5 kg (237 lb) BMI 34.01 kg/m Last 4 Encounter Wt Readings: Date: Wt: 09/29/2021 106.6 kg (235 lb) 08/12/2021 106.6 kg (235 lb) 07/01/2021 109.8 kg (242 lb) 05/13/2021 106.6 kg (235 lb) PHYSICAL EXAMINATION: General appearance: Well appearing, alert, in no acute distress, well-hydrated, well nourished. Skin: Skin color, texture, turgor normal, no suspicious rashes or lesions Head: Normocephalic, no masses, lesions, tenderness or abnormalities Lungs: Lungs clear to auscultation. No wheezing, rhonchi, rales Heart: RRR without murmur, gallop, or rubs. No ectopy Abdomen: Normal abdominal exam, Abdomen soft, non-tender. Bowel sounds normal. No masses, organomegaly Extremities: No deformities, edema, skin discoloration, clubbing or cyanosis. Good capillary refill. Musculoskeletal: No joint swelling, deformity, or tenderness Peripheral pulses: Normal Neuro: Negative. ASSESSMENT/PLAN: 1. Mixed hyperlipidemia - ICD9: 272.2, ICD10: E78.2 (primary diagnosis) - good control - Continue current medication. - LIPID PANEL BASIC 2. Essential hypertension, benign - ICD9: 401.1, ICD10: I10 - readd diuretic. bp check in one month - Continue current medication(s) - Goal of BP <130/80 - CHLORTHALIDONE 25 MG TABLET 3. Type 2 diabetes mellitus without complication, without long-term current use of insulin (HCC) - ICD9: 250.00, ICD10: E11.9 Controlled. - Continue current medications - HGB A1C 4. LOVE (obstructive sleep apnea) - ICD9: 327.23, ICD10: G47.33 - continue cpap 5. PAC (premature atrial contraction) - ICD9: 427.61, ICD10: I49.1 - [place]. Nneka Rodriguez RTO in six months and prn. 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 He was seen by my partner Dr. Iggy Reza and indicated for staged bilateral total knee replacements. He has had knee pain for several years that is worsening. He has tried corticosteroid injections which had diminishing returns. He has his compression sleeves. He is also tried activity modification, [id number] anti-inflammatories and Tylenol. Please see my partner's complete care path note Subjective: Reports approximately equal bilateral knee pain today. Is worse on the medial side. Worse with weightbearing. Worse with being up and about. After seeing She started taking tumeric at the recommendation of his sister and that is helping some. Imaging: Varus deformity bilateral knees with severe osteoarthritis, joint space loss, osteophyte formation, subchondral sclerosis Physical Exam: Bilateral knees with varus deformity Bilateral knees tender to palpation of the medial joint line, medial femoral condyle, and lateral joint line Bilateral knees with patellar crepitance Bilateral knees with pain with range of motion Range of motion is 2 to 120 degrees Neurovascularly intact Assessment and Plan: Mr. Francis is a 61-year-old man with bilateral severe osteoarthritis of his knees. He has exhausted nonoperative measures. He is taking turmeric, [id number] medications, using knee sleeves, and is failed corticosteroid injection. 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 I do think he is well indicated for staged knee replacements right and then left. He would like to take some time to consider nonoperative versus operative treatment. I have discussed repeat injections with him today as well. He will call our office if he wants to schedule. Chantal Sosa MD Orthopaedic Surgery documented in this encounter [facility] 09-29-2021 History of Presen t illness Narrative CONSULT ORTHOPAEDIC: KNEE PRIMARY CARE PHYSICIAN: Nneka Rodriguez MD REFERRING PROVIDER: Iggy Mcpherson1 [address]ithya Echevarria [facility] [id number] ASSESSMENT & PLAN Impression: Bilateral Knee Severe Degenerative Osteoarthritis, Primary Nneka Francis has radiograph and physical exam evidence of degenerative joint disease and wishes to pursue surgery. This patient appears to have sufficient symptoms to warrant surgical intervention and is an appropriate candidate for right Primary Total Knee Arthroplasty as evidenced by six months of unsuccessful non-operative treatment as outlined in the HPI below and progressive symptoms. Progressive Symptoms Include: Pain worsened by weight bearing Pain effecting living situation Unable to ambulate 2 blocks without significant pain and dysfunction . This patient has the following risk factors: DM We had a lengthy discussion regarding the risk and benefit of surgery, the alternatives, limitations and personnel involved. These included but were not limited to infection, persistent pain, instability, nerve injury, blood clots, and medical complications. We also discussed the pre-operative course, surgery itself and rehabilitation. Opal-operative blood management and transfusion issues were discussed, and options clearly outlined. The patient has consented to the use of the banked allogenic blood if medically necessary. The patient has elected to schedule surgery at this time or intends to call the office with a surgical date. Shared decision making occurred while obtaining informed consent. The patient will be scheduled for a pre-operative education class at which time they will have their nasal swab completed and will be given CHG cloths along with the verbal and written instructions for their use. Patient has been instructed and has been scheduled or will call to schedule attendence in one of the total joint perioperative classes offered prior to proceeding with TKA. The patient has been ordered: No orders placed today. CONSULTS: Patient does not require consults for optimization at this time. ACTIVE PROBLEM LIST Arthritis of Knee Essential Hypertension, Benign Hyperlipidemia Erectile Dysfunction Dm (Diabetes Mellitus) (Hcc) Love (Obstructive Sleep Apnea) Pac (Premature Atrial Contraction) SUBJECTIVE CHIEF COMPLAINT: Knee Pain HPI: Nneka Francis is a 61 year old patient here for evaluation and management of bilateral knee pain. Nneka Francis has had progressive problems with the knee(s) most of the day over the past 2 year(s) interfering with activities which include walking, standing for prolonged periods of time, getting in and out of a car and climbing stairs. The problem began limiting activities 7-12 months ago. Currently the pain in the joint is rated at 7 out of 10 with moderate activity. The pain is intermittent and is located along the inside aspect and in the back. The pain is described as aching and sharp. Relieving factors include rest. There is no specific incident that brought about this pain. Nneka Francis has no additional complaints. 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 His last injection in right knee did not help more than a month. He has tried ibuprofen with some relief and knee braces. He is ready for TKA. FUNCTIONAL STATUS: Climb a flight of stairs or walk up a hill (5.50 METs) Total Joint Arthroplasty: Risk Calculator Nneka Francis has a 3.64% chance of NOT returning home at discharge for a Primary total Knee replacement. Nneka's estimated Length of Stay is 1 day. Nneka's 30 day chance of readmission is 1.36%. Readmission Probability 1.36 % (within 30 days following surgery) Estimated LOS 1 day Discharge Disposition Probability D/C to Home 96.36 % D/C to SNF 3.64 % These calculations are based on the following factors: - 61 years of age - sex is male - BMI of 33.72 kg/m2 - NarxCare score of 0 - 0 hospitalizations in the last 12 months - no history of heart disease - history of diabetes - no history of COPD - no history of anemia - preoperative ambulation: independent community distances - 0 step(s) to enter home - bed location is NOT on the first floor - bath location is NOT on the first floor - caregiver is consistent - home is not more than 150 miles away - PROMIS-10 Mental Health T score 50+ - Marital status: PREVIOUS TREATMENTS: Attempted Weight Loss Medical Treatments: Intolerant of NSAIDS Physical Therapy: Shoe Wear, Braces, Orthotics, etc. and Activities Modified REVIEW OF SYSTEMS: PAIN ASSESSMENT: See HPI. MUSCULOSKELETAL: See HPI. Risk Factors for Total Joint Arthroplasty (TJA) Obesity Moderate Risk High: BMI > 40 Moderate: BMI 30-40 Normal: BMI < 30 Diabetes Moderate Risk High: A1C > 8 Moderate: A1C 7-8 Normal: A1C < 7 Smoking normal High: Current smoker Normal: Non smoker Anemia normal High: Hgb < 13 (men) N/A: Hgb >= 13 (men) Nutritional Status normal High: Alb<3.4, or prealb<15, or serum transferrin<200, or total lymphocyte count<1500 Normal: normal labs COPD normal High: dx of COPD Normal: no dx of COPD MRSA normal High: dx of MRSA or positive lab test Normal: no MRSA CKD normal High: eGFR<60 Moderate: eGFR 60-89 Normal: eGFR>90 Hx of DVT / PE normal High: dx of DVT / PE Normal: no dx of DVT / PE Narcotics Use normal High:NarxCare >=300 Moderate: 100-299 Normal: 0-99 LOVE High Risk High: dx of LOVE N/A: no dx of LOVE Coagulation normal High:PT Sec>13, or PT INR>1.3, or APTT>32.4, or Plt ct<150k Moderate: on anticoag but none of the above Normal: none Obesity: weight management recommended BMI Readings from Last 3 Encounters: 09/29/21 : 33.72 kg/m 08/12/21 : 33.72 kg/m 07/01/21 : 35.74 kg/m Diabetes: Well controlled Hemoglobin A1C (%) Date Value 06/25/2021 6.7 12/24/2020 6.6 Obstructive Sleep Apnea (LOVE) Other Risk Factors None PAST MEDICAL HISTORY Diagnosis Date Abnormal EKG left atrial enlargment, LVH, non-spec ST and T wave changes. DM (diabetes mellitus) (HCC) Hemorrhage of rectum and anus Hyperlipidemia Unspecified essential hypertension Essential hypertension PAST SURGICAL HISTORY Procedure Laterality Date COLONOSCOPY FLX DX W/COLLJ SPEC WHEN PFRMD 04/19/1999 Colonoscopy COLONOSCOPY FLX DX W/COLLJ SPEC WHEN PFRMD 11/08/10 COLONOSCOPY FLX DX W/COLLJ SPEC WHEN PFRMD 03/03/2016 Colonoscopy LAPS SURG CHOLECYSTECTOMY W/CHOLANGIOGRAPHY 07/18/05 FAMILY HISTORY Problem Relation Age of Onset Hypertension Father Diabetes Father Kidney Disease Father dialysis Social History Tobacco Use Smoking status: Never Smoker Smokeless tobacco: Never Used Vaping Use Vaping Use: Never used Substance Use Topics Alcohol use: Yes Alcohol/week: 1.0 standard drink Types: 1 Shots of liquor per week Drug use: No ALLERGIES: Diltiazem, Doxycycline, and Triamterene-Hydrochlorothiazid MEDICATIONS: blood sugar diagnostic (ONETOUCH VERIO TEST STRIPS) test strip Use as instructed lancets (ONE TOUCH DELICA) 33 gauge Test blood sugar(s) 1-2 times daily. Dx: Type 2 DM - Controlled E11.9 Insulin: No doxazosin (CARDURA) 4 mg tablet Take 1 tablet by mouth once daily. metFORMIN (GLUCOPHAGE) 500 mg tablet Take 1 tablet by mouth daily with breakfast. lisinopril (ZESTRIL, PRINIVIL) 40 mg tablet Take 1 tablet by mouth once daily. sildenafil (REVATIO) 20 mg tablet May use up to 5 a day metoprolol succinate ER (TOPROL XL) 25 mg 24 hr tablet Take 1 tablet by mouth once daily. atorvastatin (LIPITOR) 20 mg tablet Take 1 tablet by mouth daily at bedtime. For cholesterol. chlorthalidone (HYGROTON) 25 mg tablet Take 1 tablet by mouth once daily. hydrocortisone (ANUSOL-HC) 25 mg suppository 1 Suppository by RECTAL route twice daily as needed (hemorrhoids/bleeding). MV,MINERALS/FA/LYCOPENE/GINKGO (ONE-A-DAY MEN'S 50+ ADVANTAGE ORAL) Take by mouth once daily. CPAP autoPAP 5-20 cmH2O, mask, tubing, filters, heated humidity, lifetime supplies. Please do overnight oximetry on PAP one month after patient acclimates to PAP therapy. Dx: LOVE meclizine (ANTIVERT) 25 mg tab Take 1 tablet by mouth three times daily. gluc le/chondro le A/vit C/Mn (GLUCOSAMINE 1500 COMPLEX ORAL) Take by mouth. B Complex Vitamins capsule Take 1 capsule by mouth once daily. PHYSICAL EXAM: Ht 177.8 cm (5' 10 ) Wt 106.6 kg (235 lb) BMI 33.72 kg/m All other systems deferred. GENERAL: Appears healthy, well-nourished, no deformities. HABITUS: Normal GAIT: Antalgic to the right KNEE EXAM: Right: Alignment: Varus deformity, Partially Correctable Range of motion is 5 degrees in extension and 120 degrees of flexion. Extension La degrees Pain with ROM: No Effusion: Slight Tender to the palpation of Medial femoral condyle and Medial joint line Pain with patellar compression: Yes Stability: Anterior/Posterior stable and Varus/Valgus stable Hip Exam: flexion to 100+ degrees, full extension, internal/external rotation adequate and no pain with log roll Neurovascular Status: Sensation Intact, Moves foot and ankle up & down and 2+ dorsalis pedis DATA: Diagnostic tests reviewed for today's visit: Most recent labs Right knee X-Ray: Medial joint space noted to have severe degenerative changes The following conditions were addressed during the office visit today: Diabetes - HgbA1C optimization SIGNATURE: Iggy Reza MD PATIENT NAME: Nneka Francis DATE: September 29, 2021 TIME: 10:18 AM documented in this encounter [facility] 04-21-2021 Miscellaneous Notes Spoke with pt regarding Compologyhart message sent. Pt denies chest pain or palpitations. States he just gets dizzy and hot, will sit down and will feel better again after approx 1 hour. States this is ongoing and is following with neuro. Advised pt per PCP request to contact neuro regarding symptoms as they are following now. Advised if any chest pain, changes to heart rate or worsening symptoms to go to ER. Pt verbalizes understanding. Reason for Disposition [1] Dizziness is main symptom AND [2] NO spinning sensation (i.e., vertigo) [1] MODERATE dizziness (e.g., interferes with normal activities) AND [2] has been evaluated by physician for this Answer Assessment - Initial Assessment Questions 1. DESCRIPTION: Feeling off 2. LIGHTHEADED: Yes 3. VERTIGO: Denies 4. SEVERITY: Moderate 5. ONSET: Several weeks ago. Has seen PCP and neuro. This is ongoing 6. AGGRAVATING FACTORS: Standing, moving 7. HEART RATE: Pt denies heart rate changes, does not have any monitors though 8. CAUSE: Unsure 9. RECURRENT SYMPTOM: Yes, happens frequently 10. OTHER SYMPTOMS: Denies Protocols used: DIZZINESS - [id number], DIZZINESS - [id number] documented in this encounter [facility] documented as of this encounter (statuses as of 10/18/2021) [facility]08-19-2016 History of Past illness Narrative* Problem Noted Date Resolved Date Colon cancer screening 03/03/2016 6 Blood glucose abnormal 08/11/2014 7 Bleeding hemorrhoid 08/04/2011 09/28/2016 documented as of this encounter (statuses as of 10/27/2021) [facility] History of Past illness Narrative* Problem Noted Date Resolved Date Colon cancer screening 03/03/2016 6 Blood glucose abnormal 08/11/2014 7 Bleeding hemorrhoid 08/04/2011 09/28/2016 documented as of this encounter (statuses as of 12/30/2021) [facility] History of Past illness Narrative* Problem Noted Date Resolved Date Colon cancer screening 03/03/2016 6 Blood glucose abnormal 08/11/2014 7 Bleeding hemorrhoid 08/04/2011 09/28/2016 documented as of this encounter (statuses as of 01/09/2022) [address]19-2016 History of Past illness Narrative* Problem Noted Date Resolved Date Colon cancer screening 03/03/2016 6 Blood glucose abnormal 08/11/2014 7 Bleeding hemorrhoid 08/04/2011 09/28/2016 documented as of this encounter (statuses as of 04/18/2022) [address]19-2016 History of Past illness Narrative* Problem Noted Date Resolved Date Colon cancer screening 03/03/2016 6 Blood glucose abnormal 08/11/2014 7 Bleeding hemorrhoid 08/04/2011 09/28/2016 documented as of this encounter (statuses as of 05/02/2022) [address]19-2016 History of Past illness Narrative* Problem Noted Date Resolved Date Colon cancer screening 03/03/2016 6 Blood glucose abnormal 08/11/2014 7 Bleeding hemorrhoid 08/04/2011 09/28/2016 documented as of this encounter (statuses as of 08/11/2022) [address]19-2016 History of Past illness Narrative* Problem Noted Date Resolved Date Colon cancer screening 03/03/2016 6 Blood glucose abnormal 08/11/2014 7 Bleeding hemorrhoid 08/04/2011 09/28/2016 documented as of this encounter (statuses as of 08/16/2022) [address]19-2016 History of Past illness Narrative* Problem Noted Date Resolved Date Colon cancer screening 03/03/2016 6 Blood glucose abnormal 08/11/2014 7 Bleeding hemorrhoid 08/04/2011 09/28/2016 documented as of this encounter (statuses as of 01/10/2023) [address]19-2016 History of Past illness Narrative* Problem Noted Date Diagnosed Date Resolved Date Colon cancer screening 03/03/201603/03 Blood glucose abnormal 08/11/201409/28 Bleeding hemorrhoid 08/04/2011 09/29/19 17 documented as of this encounter (statuses as of 01/27/2023) [address]19-2016 History of Past illness Narrative* Problem Noted Date Diagnosed Date Resolved Date Colon cancer screening 03/03/201603/03 Blood glucose abnormal 08/11/201409/28 Bleeding hemorrhoid 08/04/2011 09/29/19 17 documented as of this encounter (statuses as of 03/03/2023) [address]19-2016 History of Past illness Narrative* Problem Noted Date Diagnosed Date Resolved Date Colon cancer screening 03/03/201603/03 Blood glucose abnormal 08/11/201409/28 Bleeding hemorrhoid 08/04/2011 09/29/19 17 documented as of this encounter (statuses as of 04/02/2023) [address]19-2016 History of Past illness Narrative* Problem Noted Date Diagnosed Date Resolved Date Colon cancer screening 03/03/201603/03 Blood glucose abnormal 08/11/201409/28 Bleeding hemorrhoid 08/04/2011 09/29/19 17 documented as of this encounter (statuses as of 04/25/2023) [address]19-2016 History of Past illness Narrative* Problem Noted Date Diagnosed Date Resolved Date Colon cancer screening 03/03/201603/03 Blood glucose abnormal 08/11/201409/28 Bleeding hemorrhoid 08/04/2011 09/29/19 17 documented as of this encounter (statuses as of 05/16/2023) [address]19-2016 History of Past illness Narrative* Problem Noted Date Diagnosed Date Resolved Date Colon cancer screening 03/03/201603/03 Blood glucose abnormal 08/11/201409/28 Bleeding hemorrhoid 08/04/2011 09/29/19 17 documented as of this encounter (statuses as of 06/08/2023) [address]19-2016 History of Past illness Narrative* Problem Noted Date Diagnosed Date Resolved Date Colon cancer screening 03/03/201603/03 Blood glucose abnormal 08/11/201409/28 Bleeding hemorrhoid 08/04/2011 09/29/19 17 documented as of this encounter (statuses as of 06/30/2023) [facility] note* Diagnosis Primary osteoarthritis of both knees- Primary Primary localized osteoarthrosis, lower leg Chronic pain of both knees documented in this encounter [facility] note* Diagnosis Primary osteoarthritis of both knees- Primary Primary localized osteoarthrosis, lower leg [facility] Diagnosis Mixed hyperlipidemia- Primary Essential hypertension, benign Type 2 diabetes mellitus without complication, without long-term current use of insulin (HCC) LOVE (obstructive sleep apnea) Obstructive sleep apnea (adult) (pediatric) PAC (premature atrial contraction) Supraventricular premature beats documented in this encounter [facility] note* Diagnosis Type 2 diabetes mellitus without complication, without long-term current use of insulin (HCC) [facility] Diagnosis Type 2 diabetes mellitus without complication, without long-term current use of insulin (HCC) Essential hypertension, benign Mixed hyperlipidemia documented in this encounter [facility] note* Diagnosis Essential hypertension, benign- Primary Irregular heart rate Cardiac dysrhythmia, unspecified documented in this encounter [facility] note* Diagnosis Type 2 diabetes mellitus without complication, without long-term current use of insulin (HCC) Essential hypertension, benign [facility] Diagnosis Right knee pain, unspecified chronicity- Primary [facility] Diagnosis Chronic pain of right knee- Primary Primary osteoarthritis of right knee Primary localized osteoarthrosis, lower leg documented in this encounter [facility] note* Diagnosis Ascending aorta dilatation (HCC)- Primary Thoracic aortic ectasia documented in this encounter [facility] note* Diagnosis Essential hypertension, benign- Primary Mixed hyperlipidemia Ascending aorta dilatation (HCC) Thoracic aortic ectasia LOVE (obstructive sleep apnea) Obstructive sleep apnea (adult) (pediatric) Type 2 diabetes mellitus without complication, without long-term current use of insulin (HCC) Cramp in limb Cramp of limb Need for vaccination Need for prophylactic vaccination and inoculation against unspecified single disease documented in this encounter [facility] for referral (narrative)* Outpatient Procedure (Routine) - Closed Specialty Diagnoses / Procedures Referred By Contac t Referred To [facility] Diagnoses Irregular heart rate Procedures ECG COMPLETE ECG ROUTINE ECG W/LEAST 12 LDS W/I&R Esha Costello, JULIET.[employer]OWER[employer]ER [address] [place] [address] [facility] [address] [address] Referral ID Status Reason Start Date Expiration Date V isits Requested Visits Authorized [id number] Closed Auto-Generate d Referral 01/26/2023 01/26/2024 1 1 [facility] for referral (narrative)* Diagnostic Procedure Only (Routine) - Pending Review Specialty Diagnoses / Procedures Referred By Contac t Referred To Contact XR IMAGING Diagnoses Right knee pain, unspecified chronicity Procedures XR KNEE GENERAL 4V AP BOTH/PA BOTH/LAT/MERC RIGHT RADIOLOGIC EXAM KNEE COMPLETE 4/MORE VIEWS Adrian Cooper APRN.CNP [address] [address] [place] [address] Referral ID Status Reason Start Date Expiration Date Visits Requested Visits Authorized [id number] Pending Review Auto-Generat ed Referral 05/23/2024 1 1 [facility] for referral (narrative)* Outpatient Procedure (Routine) - Authorized Specialty Diagnoses / Procedures Referred By Contac t Referred To Contact HE[facility] [place] Diagnoses Ascending aorta dilatation (HCC) Procedures ECHO ECHO TTHRC R-T 2D W/WOM-MODE COMPL SPEC&COLR D Esha Costello APRN.[employer]ER [address] [place] [address] [facility] [place] [address] [place] [id number] Referral ID Status Reason Start Date Expiration Date Visits Requested Visits Authorized [id number] Authorized Auto-Generat ed Referral 08/03/2023 01/31/2024 1 1 [facility] Advance Directives No Advanced Directives Records FoundDocuments on File 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 Date 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 Advance Directive(s) Advance Directive(s) 03/28/2021 2:26 PM Advance Directive(s) 10/13/2020 10:14 AM Advance Directive(s) 03/03/2016 3:40 PM Summary Purpose Family History No Family History Records FoundNo Family History Records FoundNo Family History Records Found Reason for Referral Specialty Diagnoses / Procedures Referred By Contac t Referred To Contact CT IMAGING Diagnoses Chronic pain of right knee Procedures CT KNEE WO IVCON RIGHT CT LOWER EXTREMITY W/O CONTRAST MATERIAL Chantal Sosa MD [address] [address] [place] [address] Referral ID Status Reason Start Date Expiration Date Visits Requested Visits Authorized [id number] Pending Review Auto-Generat ed Referral 3 06/13/2024 1 1 Specialty Diagnoses / Procedures Referred By Contac t Referred To Contact Cardiology Diagnoses Ascending aorta dilatation (HCC) Procedures CONSULT TO CARDIOLOGY OFFICE/OUTPATIENT [facility] MDM 60-74 MINUTES Nneka Rodriguez MD [address] [place] [address] Referral ID Status Reason Start Date Expiration Date Visits Requested Visits Authorized [id number] Authorized PCP Requested Referral 3 06/28/2024 1 1 Additional Source Comments Source Comments (unrecognize d section and content) In the event this informatio n is protected by the Federal Confidentiality of Alcohol and Drug Abuse Patient Records regulations: The Federal rules restrict any use of the information to criminally investigate or prosecute any alcohol or drug abuse patient.[facility] event this information is protected by the Federal Confidentiality of Alcohol and Drug Abuse Patient Records regulations: The Federal rules restrict any use of the information to criminally investigate or prosecute any alcohol or drug abuse patient.[facility] the event this information is protected by the Federal Confidentiality of Alcohol and Drug Abuse Patient Records regulations: The Federal rules restrict any use of the information to criminally investigate or prosecute any alcohol or drug abuse patient.[facility] the event this information is protected by the Federal Confidentiality of Alcohol and Drug Abuse Patient Records regulations: The Federal rules restrict any use of the information to criminally investigate or prosecute any alcohol or drug abuse patient.[facility] the event this information is protected by the Federal Confidentiality of Alcohol and Drug Abuse Patient Records regulations: The Federal rules restrict any use of the information to criminally investigate or prosecute any alcohol or drug abuse patient.[facility] the event this information is protected by the Federal Confidentiality of Alcohol and Drug Abuse Patient Records regulations: The Federal rules restrict any use of the information to criminally investigate or prosecute any alcohol or drug abuse patient.[facility] the event this information is protected by the Federal Confidentiality of Alcohol and Drug Abuse Patient Records regulations: The Federal rules restrict any use of the information to criminally investigate or prosecute any alcohol or drug abuse patient.[facility] the event this information is protected by the Federal Confidentiality of Alcohol and Drug Abuse Patient Records regulations: The Federal rules restrict any use of the information to criminally investigate or prosecute any alcohol or drug abuse patient.[facility] the event this information is protected by the Federal Confidentiality of Alcohol and Drug Abuse Patient Records regulations: The Federal rules restrict any use of the information to criminally investigate or prosecute any alcohol or drug abuse patient.[facility] the event this information is protected by the Federal Confidentiality of Alcohol and Drug Abuse Patient Records regulations: The Federal rules restrict any use of the information to criminally investigate or prosecute any alcohol or drug abuse patient.[facility] the event this information is protected by the Federal Confidentiality of Alcohol and Drug Abuse Patient Records regulations: The Federal rules restrict any use of the information to criminally investigate or prosecute any alcohol or drug abuse patient.[facility] the event this information is protected by the Federal Confidentiality of Alcohol and Drug Abuse Patient Records regulations: The Federal rules restrict any use of the information to criminally investigate or prosecute any alcohol or drug abuse patient.[facility] the event this information is protected by the Federal Confidentiality of Alcohol and Drug Abuse Patient Records regulations: The Federal rules restrict any use of the information to criminally investigate or prosecute any alcohol or drug abuse patient.[facility] the event this information is protected by the Federal Confidentiality of Alcohol and Drug Abuse Patient Records regulations: The Federal rules restrict any use of the information to criminally investigate or prosecute any alcohol or drug abuse patient.[facility] the event this information is protected by the Federal Confidentiality of Alcohol and Drug Abuse Patient Records regulations: The Federal rules restrict any use of the information to criminally investigate or prosecute any alcohol or drug abuse patient.[facility] the event this information is protected by the Federal Confidentiality of Alcohol and Drug Abuse Patient Records regulations: The Federal rules restrict any use of the information to criminally investigate or prosecute any alcohol or drug abuse patient.[facility] Reason for Visit (unrecogniz ed section and content) Reason Comments New Pain Reason Comments Hypertension Reason Comments Refill Request Reason Onset Date Comments Dizziness 04/21/2021 Reason Onset Date Comments Refill Request 05/01/2022 Reason Comments Blood Pressure Check Reason Comments Recheck 1 month follow up Reason Onset Date Comments Refill Request 03/02/2023 Reason Comments Pre-Op Visit Reason Comments Results Reason Onset Date Comments 6 Month Exam Immunizations 06/29/2023 Flu vaccination Care Teams (unrecognized sec tion and content) Process Coordinator Relationship Specialty Start Date End Date Nneka Rodriguez MD [address] [place] [address] PCP - General Family Practice 10/23/14 Process Coordinator Relationship Specialty Start Date End Date Nneka Rodriguez MD [address] [place] [address] PCP - General Family Practice 10/23/14 Process Coordinator Relationship Specialty Start Date End Date Nneka Rodriguez MD [address] [place] [address] PCP - General Family Medicine 10/23/14 Process Coordinator Relationship Specialty Start Date End Date Nneka Rodriguez MD [address] [place] [address] PCP - General Family Medicine 10/23/14 Process Coordinator Relationship Specialty Start Date End Date Nneka Rodriguez MD [address] [place] [address] PCP - General Family Medicine 10/23/14 Process Coordinator Relationship Specialty Start Date End Date Nneka Rodriguez MD [address] [place] [address] PCP - General Family Medicine 10/23/14 Process Coordinator Relationship Specialty Start Date End Date Nneka Rodriguez MD [address] [place] [address] PCP - General Family Medicine 10/23/14 Process Coordinator Relationship Specialty Start Date End Date Nneka Rodriguez MD [address] [facility] [place] [address] PCP - General Family Medicine 10/23/14 Process Coordinator Relationship Specialty Start Date End Date Nneka Rodriguez MD [address] [place] [address] PCP - General Family Medicine 10/23/14 Process Coordinator Relationship Specialty Start Date End Date Nneka Rodriguez MD [address] [place], [place] [address] PCP - General Family Medicine 10/23/14 Process Coordinator Relationship Specialty Start Date End Date Nneka Rodriguez MD [address] [place], [place] [address] PCP - General Family Medicine 10/23/14 Process Coordinator Relationship Specialty Start Date End Date Nneka Rodriguez MD [address] [place], [place] [address] PCP - General Family Medicine 10/23/14 Process Coordinator Relationship Specialty Start Date End Date Nneka Rodriguez MD [address] [place], [place] [address] PCP - General Family Medicine 10/23/14 Process Coordinator Relationship Specialty Start Date End Date Nneka Rodriguez MD [address] [place], [place] [address] PCP - General Family Medicine 10/23/14 (unrecognized sect ion and content) No Status Records FoundNo Status Records FoundNo Status Records Found INFORMATION SOURCE (unrecogn ized section and content) DATE CREATED AUTHOR AUTHOR'S ORGANIZ ATION 05/16/2023 [facility] DATE CREATED AUTHOR AUTHOR'S ORGANIZ ATION 08/07/2023 [facility] FOR RECORDS PERTAINING TO PATIENTS WHO ARE OR HAVE BEEN ENROLLED IN A CHEMICAL DEPENDENCY/SUBSTANCEABUSE PROGRAM, SOME INFORMATION MAY BE OMITTED. This clinical summary was aggregated from multiple sources. Caution should be exercised in using it in the provision of clinical care. This summary normalizes information from multiple sources, and as a consequence, information in this document may materially change the coding, format and clinical context of patient data. In addition, data may be omitted in some cases. CLINICAL DECISIONS SHOULD BE BASED ON THE PRIMARY CLINICAL RECORDS. [facility], [facility]. provides no warranty or guarantee of the accuracy or completeness of information in this document.
[2023-08-11 20:11] LABS: Anion Gap 4 (5-15); BUN 21 mg/dL (7-18); BUN/Creat Ratio 16.3 RATIO (10-20); Calcium,Total 9.8 mg/dL (8.5-10.1); Chloride 106 mmol/L (98-107); Creatinine, Serum 1.29 mg/dL (0.70-1.30); EST Glomerular Filtration Rate 60 mL/min (>60); Est Glom Filt Rate - Afr Amer 72 mL/min (>60); Estimated Creatinine Clearance 70.91 ml/min; Glucose 179 mg/dL (74-106); Potassium 3.7 mmol/L (3.5-5.1); Sodium Level 138 mmol/L (136-145)
[2023-08-11 20:54] LABS: Bacteria 0 SEEN /hpf (None Seen); Mucous, Urine 0 SEEN /hpf (<or=2+); Squamous Epithelial Cells - UA 0 SEEN /hpf (0-5)
[2023-08-11 21:00] LABS: Color, Urine Yellow (Yellow); Glucose, Dipstick Normal (Normal); Ketone-Dipstick 5 mg/dl (Negative); Leukocyte Esterase-Dipstick 100 /ul (Negative); Nitrite-Dipstick Positive (Negative); Occult Blood-Urine 250 /ul (Negative); Protein-Dipstick 100 mg/dl (Negative); Urine Bilirubin Dipstick Negative (Negative); Urine Clarity Cloudy (Clear); Urine Urobilinogen 1 mg/dl (Normal); Urine pH 6.5 (5.0 - 8.0)
[2023-08-11 21:22] LABS: Red Blood Cells-Urine > 100 SEEN /hpf (0-5)
[2023-08-11 21:23] LABS: White Blood Cells 0-5 SEEN /hpf (0-5)
[2023-08-11 21:54] VITALS: BP 136/87; PULSE 87; RESP 16; O2SAT 97
== END 2023-08-11 22:00 | disposition home or self-care (01) ==
PROVIDERS: Physician Assistant; Emergency Provider Emergency Medicine; PCP Family Medicine; Visit Provider Emergency Medicine
DX: N13.6 Pyonephrosis (principal); E11.9 Type 2 diabetes mellitus without complications; N23 Unspecified renal colic; Z79.899 Other long term (current) drug therapy; I10 Essential (primary) hypertension; E78.5 Hyperlipidemia, unspecified; Z90.49 Acquired absence of other specified parts of digestive tract
CPT/HCPCS: 74176; 80048; 81001; 85025; 87086; 96374; 99283; A4216

== ENCOUNTER → 2023-10-30 | Outpatient (CLI) | payer OTHER, SELFPAY ==
--- NOTE | 2023-10-30 08:38 | VDLE_ITS ---
Reason For Study: R leg pain, L leg pain RIGHT LEFT CFV is compressible, spontaneous, phasic, CFV is compressible, spontaneous, phasic, competent and demonstrates normal competent, and demonstrates normal augmentation. augmentation. FV is compressible, spontaneous, phasic, FV is compressible, spontaneous, phasic, competent and demonstrates normal competent and demonstrates normal augmentation. augmentation. POP V is compressible, spontaneous, phasic, POP V is compressible, spontaneous, phasic, competent and demonstrates normal competent and demonstrates normal augmentation. augmentation. T/P Trunk is compressible. T/P Trunk is compressible. PTV is compressible. PTV is compressible. RT PerV is compressible. LT PerV is compressible. SFJ is competent and measures .66 cm. SFJ is competent and measures .59 cm. GSV proximal thigh measures .21 x .24 cm. GSV proximal thigh measures .3 x .35 cm. GSV at knee measures .22 x .29 cm. GSV at knee measures .26 x .32 cm. GSV is competent throughout. GSV INCOMPETENT throughout for greater than SSV proximal calf is competent and 0.5 seconds. measures .18 x .21 cm. SSV at junction is competent and measures .13 Procedure x .16 cm. This is a venous duplex using B-mode, color flow and spectral Doppler. Exam performed in department. The exam was diagnostic. VL/Venous Duplex US - Antonio Extrem Interpretation Summary Deep veins of the right lower extremity are patent and compressible segmentally . There is no evidence of right lower extremity deep vein thrombosis. The right great sapheno us vein appears patent and compressible segmentally. Positive for reflux in the left great saphenous vein throughout. Ordering Physician: Korey Bustos Referring Physician: Korey Bustos Performed By: Chu Byrd RVT and Student
--- NOTE | 2023-10-30 08:38 | ART_ITS ---
Reason For Study: PVD Procedure A bilateral lower extremity continuous wave Doppler with analog waveform analysis,segmental pressures,and ankle brachial indexes without exercise. Left Segmental Pressures Left brachial= 185mmHg. Left posterior tibial artery = 197mmHg. Left dorsalis pedis artery = 193mmHg. Left digit = 181 mmHg. The left dorsalis pedis waveforms are triphasic. The left posterior tibial artery waveforms are triphasic. Right Segmental Pressures Right brachial= 190mmHg. Right posterior tibial artery = 195mmHg. Right dorsalis pedis artery = 195mmHg. Right digit = 158 mmHg. The right dorsalis pedis waveforms are triphasic. The right posterior tibial artery waveforms are triphasic. Indices The right ankle brachial index by the dorsalis pedis is 1.03. The right ankle brachial index by the posterior tibial artery is 1.03. The right digital-brachial index is .83. The left ankle brachial index by the dorsalis pedis is 1.02. The left ankle brachial index by the posterior tibial artery is 1.04. The left digital-brachial index is .95. VL/Lower Ext Art Exam w/o Exercis Interpretation Summary Right JJ 1.03, normal. TBI and Doppler/PVR waveforms of the right leg normal a t rest. Left JJ 1.04, normal. TBI and Doppler/PVR waveforms of the left leg normal at rest. Ordering Physician: Korey Bustos Performed By: Donavon Byrd RVT
== END | disposition home or self-care (01) ==
PROVIDERS: PCP Family Medicine; Referring Provider Podiatrist Foot & Ankle Surgery; Visit Provider Podiatrist Foot & Ankle Surgery
DX: M79.604 Pain in right leg (principal); M79.605 Pain in left leg; I73.89 Other specified peripheral vascular diseases
CPT/HCPCS: 93923; 93970

== ENCOUNTER 2024-01-04 14:33 | Emergency (ER) | payer OTHER, SELFPAY ==
[2024-01-04 14:34] VITALS: BP 154/103; PULSE 85; RESP 16; TEMP 36.8; O2SAT 99; BMI 33.0
[2024-01-04 14:55] LABS: Color, Urine Yellow (Yellow); Glucose, Dipstick 50 mg/dl (Normal); Ketone-Dipstick 5 mg/dl (Negative); Leukocyte Esterase-Dipstick 25 /ul (Negative); Nitrite-Dipstick Negative (Negative); Occult Blood-Urine 10 /ul (Negative); Protein-Dipstick 30 mg/dl (Negative); Specific Gravity, Urine 1.025 (1.002-1.030); Urine Bilirubin Dipstick Negative (Negative); Urine Clarity Clear (Clear); Urine Urobilinogen Normal (Normal)
--- NOTE | 2024-01-04 15:00 | CT_ITS ---
EXAM: CT ABDOMEN AND PELVIS WITHOUT INTRAVENOUS CONTRAST CLINICAL INDICATION: right flank pain TECHNIQUE: Helically acquired images were obtained of the abdomen and pelvis without intravenous contrast. This CT exam was performed using one or more of the following dose reduction techniques: automated exposure control, adjustment of the mA and/or kV according to patient size, and/or use of iterative reconstruction technique. COMPARISON: 08/11/2023 FINDINGS: LOWER THORAX: Unremarkable. Lung bases are clear. No cardiomegaly. No significant pericardial effusion. ABDOMEN: LIVER: Unremarkable. Homogeneous. GALLBLADDER AND BILE DUCTS: Unremarkable. No calcified gallstones. No gallbladder distention or wall edema. No intra- or extrahepatic biliary ductal dilation. PANCREAS: Unremarkable. No focal cystic mass. SPLEEN: Unremarkable. Normal size without focal cystic or solid mass. ADRENALS: Unremarkable. No nodules. KIDNEYS AND URETERS: There is mild right-sided hydronephrosis and hydroureter. There is a 6 mm stone at the right UVJ. There are nonobstructing calyceal stones bilaterally. Normal renal size and position. STOMACH AND BOWEL: Unremarkable. No stomach or bowel distention. No focal inflammatory change. PELVIS: APPENDIX: No evidence of acute appendicitis. BLADDER: Unremarkable. REPRODUCTIVE: Unremarkable as visualized. No mass. ABDOMEN and PELVIS: INTRAPERITONEAL SPACE: Unremarkable. No ascites or other fluid collection. No free air. BONES/JOINTS: Unremarkable. No suspicious lytic or blastic abnormality. SOFT TISSUES: Unremarkable. No discrete abdominal or pelvic wall hernia. VASCULATURE: Unremarkable. Abdominal aorta is non-dilated. LYMPH NODES: Unremarkable. No enlarged lymph nodes. CT/Abdomen/Pelvis without Cont IMPRESSION: Obstruction of the right collecting system due to 6 mm stone at the UVJ. There is mild right-sided hydronephrosis and hydroureter. There are bilateral nonobstructing calyceal stones. Electronically Signed: Osorio Moseley MD at 16:17 EDT ,
[2024-01-04 15:01] LABS: Red Blood Cells-Urine 0-5 SEEN /hpf (0-5); Squamous Epithelial Cells - UA 0-5 SEEN /hpf (0-5); White Blood Cells 0-5 SEEN /hpf (0-5)
[2024-01-04 15:02] LABS: Bacteria 1+ /hpf (None Seen); Mucous, Urine 1+ /hpf (<or=2+)
[2024-01-04] MEDS: Ketorolac 15 MG/ML Vial IV (15:09)
[2024-01-04] MEDS: Ondansetron 4 MG/2 ML Vial IV (15:10)
[2024-01-04] MEDS: Morphine 4 MG/ML Syringe IV (15:11)
[2024-01-04 15:19] LABS: Absolute Neutrophil Count 3.9 X10^3/uL (2.0-7.7); Basophil# 0.05 X10^3/uL; Basophil% 0.6 % (0-1); Eosinophil# 0.23 X10^3/uL; Hematocrit 44.5 % (40-54); Hemoglobin 14.1 g/dL (13.0-16.5); Lymphocyte % 32.1 % (19-41); Mean Corp Hgb Conc 31.7 g/dL (32-36); Mean Corpuscular Hgb 26.6 pg (27.0-32.0); Mean Platelet Vol. 9.6 fl (6.2-12.0); Monocyte# 1.05 X10^3/uL; Monocyte% 13.5 % (0-10); NRBC Flagged by Analyzer 0 % (0-5); Neutrophil # 3.87 X10^3/uL (2.7-7.7); Neutrophil % 49.6 % (47-70); Platelet Count 303 K/mm3 (150-450); RBC Distribution Width CV 14.6 % (11.6-14.6); RBC Distribution Width SD 44.3 fl (35.1-43.9); White Blood Count 7.8 K/mm3 (4.4-11.0)
--- NOTE | 2024-01-04 15:20 | EDS_ITS ---
HPI History of Present Illness Chief Complaint: Flank Pain Narrative Narrative: 63-year-old male presenting with right flank pain. He states he has had it since midnight. He states it is sharp and radiates to the right inguinal region. Patient is had kidney stones in the past. He states he follows with urologist at [facility]. Last time he was sent home with [facility] and followed up with them. The stone had passed without any intervention. Patient denies fevers or chills. He does have nausea. No dysuria or hematuria noted. [facility] Medical History Hyperlipidemia Diabetes mellitus Hypertension Home Medications ?Medication ?Instructions ?Recorded ?Last Taken ?Type hydrocodone-acetaminophen 5-325mg 1 tab PO Q6H PRN PRN Pain 3 days 08/11/23 Unknown Rx 5mg-325mg #12 TABLETS ondansetron 4 mg disintegrating 4 mg PO Q6H PRN PRN Nausea #15 tabs 08/11/23 Unknown Rx tablet tamsulosin 0.4 mg capsule (Flomax) 0.4 mg PO QHS 7 days #7 caps 08/11/23 Unknown Rx atorvastatin 20 mg tablet 20 mg PO QHS cholesterol 01/04/24 Unknown History hydrocodone-acetaminophen 5-325mg 1 tab PO Q6H 3 days #12 TABLETS 01/04/24 Unknown Rx 5mg-325mg lisinopril 40 mg tablet 40 mg PO DAILY 01/04/24 Unknown History ondansetron 4 mg disintegrating 4 mg PO Q8H PRN PRN Nausea #14 tabs 01/04/24 Unknown Rx tablet Allergy/AdvReac Type Severity Reaction Status Date / Time diltiazem Allergy Mild dizziness Verified 01/04/24 14:36 triamterene Allergy Mild dizziness Verified 01/04/24 14:36 Surgical History Hx of cholecystectomy Social History Smoking Status: Never smoker ROS ROS ED Constitutional Constitutional ED: Denies chills, fever(s) or sweats Eyes Eyes: Denies blurry vision or change in vision ENT ENT ED: Denies ear pain or sore throat Cardiovascular Cardiovascular: Denies chest pain, palpitations or racing heartbeat Respiratory/Chest Respiratory/Chest: Denies cough, dyspnea or sputum Gastrointestinal Gastrointestinal: Reports abdominal pain and nausea; Denies constipation, diarrhea or vomiting Genitourinary Genitourinary ED: Denies dysuria, hematuria or urinary frequency Musculoskeletal Musculoskeletal: Reports back pain; Denies arthralgias, myalgias or neck pain Integumentary Denies abscess, Abrasions or rash Neurologic Neurologic: Denies headache(s), paresthesias or weakness Psychiatric Psychiatric: Denies anxiety, depression, suicidal ideation or suicidal thoughts Endocrine Endocrinology: Denies polydipsia or polyuria EXAM Physical Exam Const Vital Signs: 01/04/24 14:34 01/04/24 16:38 Temperature 98.3 F 98 F Temperature Source Temporal Pulse Rate 85 76 Respiratory Rate 16 14 Blood Pressure 154/103 H 145/99 H Blood Pressure Mean 120 114 Pulse Ox 99 100 Oxygen Delivery Method Room Air Positive well nourished General Appearance ED: NAD HEENT Reports moist mucous membranes Eyes PERRL and EOMs intact bilaterally Resp normal respiratory effort Cardio regular rate and regular rhythm GI non-tender, non-distended and no masses Bladder / Kidney Exam: CVA tenderness right Neuro oriented x3 and CN's II-XII intact bilaterally Sensorium / Orientation: alert Motor Exam: strength 5/5 throughout Psych mental status grossly normal Attitude: No agitated MDM MDM MDM Narrative Medical decision making narrative: Patient presenting with left flank pain. Patient presenting with right flank pain. Differential includes colitis, diverticulitis, constipation, UTI, pyelonephritis, renal calculi, ureteral calculi, bowel obstruction, malignancy, dehydration, electrolyte abnormalities. CBC will be obtained to assess white blood cell count, hemoglobin, platelets. BMP to assess renal function, electrolytes, glucose. Urinalysis to assess for UTI or occult blood. Patient medicated with morphine, Zofran,. Normal. CBC shows normal white blood cell count of 7.8. Hemoglobin 14. Platelets 3. Urinalysis negative for infection but does have some occult blood. CT of the abdomen pelvis without contrast was obtained. CBC shows normal white blood cell count, hemoglobin, platelets. Renal function and electrolytes within normal limits. Urinalysis is negative for infection but does show some small amount of old blood. CT of the abdomen pelvis without contrast is obtained and shows a 6 mm stone at the UVJ on the right with mild hydronephrosis and hydroureter. On reevaluation the patient's pain is controlled. He is given a [facility] here. He was given prescription for N orco and Zofran. I recommended he follow-up with his urologist. All questions were answered. Discharged in stable condition. Impression: 1. 6 mm right UVJ stone 2. Right-sided hydronephrosis 3. Hematuria Lab Data Attestation: I reviewed the patient's lab results. Labs: Laboratory Results - last 24 hr 01/04/24 01/04/24 14:46 14:55 WBC 7.8 RBC 5.30 Hgb 14.1 Hct 44.5 MCV 84.0 MCH 26.6 L MCHC 31.7 L RDW Std Deviation 44.3 H RDW Coeff of Navin 14.6 Plt Count 303 MPV 9.6 Immature Gran % (Auto) 1.200 H Neut % (Auto) 49.6 Lymph % (Auto) 32.1 [place] % (Auto) 13.5 H Eos % (Auto) 3.0 Baso % (Auto) 0.6 Absolute Neuts (auto) 3.9 Absolute Lymphs (auto) 2.50 Nucleated RBC % 0 Sodium 140 Potassium 3.4 L Chloride 107 Carbon Dioxide 25.0 Anion Gap 8 BUN 20 H Creatinine 1.28 Estim Creat Clear Calc 71.46 Est GFR (MDRD) Af Amer 73 Est GFR (MDRD) Non-Af 60 BUN/Creatinine Ratio 15.6 Glucose 130 H Calcium 9.8 Urine Color Yellow Urine Clarity Clear Urine pH 5.0 Ur Specific [place] 1.025 Urine Protein 30 H Urine Glucose (UA) 50 H Urine Ketones 5 H Urine Occult Blood 10 H Urine Nitrite Negative Urine Bilirubin Negative Urine Urobilinogen Normal Ur Leukocyte Esterase 25 H Urine RBC 0-5 SEEN Urine WBC 0-5 SEEN Ur Squamous Epith Cells 0-5 SEEN Urine Bacteria 1+ Urine Mucus 1+ Radiography Diagnostic Testing: Clinical Impression(s) from Imaging Studies Abdomen/Pelvis CT 01/04/24 15:00 IMPRESSION: Obstruction of the right collecting system due to 6 mm stone at the UVJ. There is mild right-sided hydronephrosis and hydroureter. There are bilateral nonobstructing calyceal stones. Electronically Signed: Osorio Moseley MD at 16:17 EDT , Discharge Plan Triage Chief Complaint: Flank Pain ED Provider: Sarmad Manley Dx/Rx/DC Orders Instructions: ED Kidney Stone with Pain Prescriptions: New hydrocodone-acetaminophen 5-325 mg tablet 1 tab PO Q6H 3 Days Qty: 12 0RF ondansetron 4 mg tablet,disintegrating 4 mg PO Q8H PRN PRN (Reason: Nausea) Qty: 14 0RF No Action hydrocodone-acetaminophen [hydrocodone-acetaminophen] 5-325 mg tablet 1 tab PO Q6H PRN PRN (Reason: Pain) 3 Days Qty: 12 0RF tamsulosin [Flomax] 0.4 mg capsule 0.4 mg PO QHS 7 Days Qty: 7 0RF ondansetron [ondansetron] 4 mg tablet,disintegrating 4 mg PO Q6H PRN PRN (Reason: Nausea) Qty: 15 0RF atorvastatin 20 mg tablet 20 mg PO QHS lisinopril 40 mg tablet 40 mg PO DAILY Primary Care Provider: Sen Rodriguez Referrals: Sen Rodriguez MD [Primary Care Provider] - Print Language: Romanian Disposition Disposition: Home, Self Care Discharge Date/Time: 01/04/24 16:40
[2024-01-04 15:33] LABS: Anion Gap 8 (5-15); BUN 20 mg/dL (7-18); BUN/Creat Ratio 15.6 RATIO (10-20); Calcium,Total 9.8 mg/dL (8.5-10.1); Chloride 107 mmol/L (98-107); Creatinine, Serum 1.28 mg/dL (0.70-1.30); EST Glomerular Filtration Rate 60 mL/min (>60); Est Glom Filt Rate - Afr Amer 73 mL/min (>60); Estimated Creatinine Clearance 71.46 ml/min; Glucose 130 mg/dL (74-106); Potassium 3.4 mmol/L (3.5-5.1); Sodium Level 140 mmol/L (136-145)
[2024-01-04 16:38] VITALS: BP 145/99; PULSE 76; RESP 14; TEMP 36.6; O2SAT 100
== END 2024-01-04 16:40 | disposition home or self-care (01) ==
PROVIDERS: Emergency Provider Student in an Organized Health Care Education/Training Program; PCP Family Medicine; Visit Provider Student in an Organized Health Care Education/Training Program
DX: N13.2 Hydronephrosis with renal and ureteral calculous obstruction (principal); E11.9 Type 2 diabetes mellitus without complications; N13.4 Hydroureter; R31.9 Hematuria, unspecified; Z87.442 Personal history of urinary calculi; E78.5 Hyperlipidemia, unspecified; I10 Essential (primary) hypertension; Z79.899 Other long term (current) drug therapy
CPT/HCPCS: 74176; 80048; 81001; 85025; 96374; 96375; 99283; J7030; A4216; J2405

== ENCOUNTER 2024-02-23 00:55 | Emergency (ER) | payer OTHER, SELFPAY ==
[2024-02-23 00:55] VITALS: BP 141/100; PULSE 56; RESP 18; TEMP 36.3; O2SAT 98; BMI 32.8
[2024-02-23 00:58] VITALS: BP 141/100; PULSE 56; RESP 16; TEMP 36.2; O2SAT 98
[2024-02-23] MEDS: Ketorolac 30 MG/ML Syringe IV (01:26)
[2024-02-23 01:27] LABS: Absolute Lymphocyte Count 3.58 X10^3/uL (0.83-4.51); Absolute Neutrophil Count 3.2 X10^3/uL (2.0-7.7); Basophil# 0.05 X10^3/uL; Basophil% 0.6 % (0-1); Eosinophil# 0.15 X10^3/uL; Eosinophils% 1.8 % (0-5); Hematocrit 45.1 % (40-54); Hemoglobin 14.8 g/dL (13.0-16.5); Lymphocyte # 3.58 X10^3/ul (0.83-4.51); Mean Corp Hgb Conc 32.8 g/dL (32-36); Mean Corpuscular Volume 82.1 fL (80-94); Mean Platelet Vol. 9.7 fl (6.2-12.0); Monocyte# 1.15 X10^3/uL; Monocyte% 14.1 % (0-10); NRBC Flagged by Analyzer 0 % (0-5); Neutrophil # 3.15 X10^3/uL (2.7-7.7); Neutrophil % 38.9 % (47-70); Platelet Count 298 K/mm3 (150-450); RBC Distribution Width SD 41.2 fl (35.1-43.9); Red Blood Count 5.49 M/mm3 (4.6-6.2); White Blood Count 8.1 K/mm3 (4.4-11.0)
[2024-02-23] MEDS: 0.9% Normal Saline (1000mL) 1,000 ML 999 ML IV (01:27)
[2024-02-23 01:40] LABS: Anion Gap 6 (5-15); BUN 24 mg/dL (7-18); BUN/Creat Ratio 18.9 RATIO (10-20); Calcium,Total 9.6 mg/dL (8.5-10.1); Chloride 106 mmol/L (98-107); Creatinine, Serum 1.27 mg/dL (0.70-1.30); EST Glomerular Filtration Rate 61 mL/min (>60); Est Glom Filt Rate - Afr Amer 73 mL/min (>60); Estimated Creatinine Clearance 70.88 ml/min; Glucose 142 mg/dL (74-106); Potassium 3.6 mmol/L (3.5-5.1); Sodium Level 139 mmol/L (136-145)
--- NOTE | 2024-02-23 01:44 | CT_ITS ---
INDICATION: RIGHT FLANK PAIN EXAMINATION: CT Abdomen And Pelvis W/O Contrast Injection TECHNIQUE: Helically acquired images were obtained of the abdomen and pelvis with sagittal and coronal reconstructed images. Individualized dose optimization techniques were used for this CT. IV contrast dosage and agent: None. Oral contrast: None. COMPARISON: 01/04/2024 CT. FINDINGS: VESSELS: No abdominal aortic aneurysm. LIVER: No intrahepatic or extrahepatic biliary duct dilation. Diffuse decreased attenuation of the liver consistent with fatty infiltration. GALLBLADDER: Status post cholecystectomy. PANCREAS: No evidence of a mass. No evidence of pancreatitis. SPLEEN: Normal. ADRENAL GLANDS: Stable 2.5 cm right adrenal gland nodule with attenuation values consistent with a benign lipid rich adrenal adenoma. KIDNEYS AND URETERS: 4 mm stone in the distal right ureter, just proximal to the ureterovesical junction with mild right hydronephrosis and hydroureter. Nonobstructing bilateral renal stones. Bilateral perinephric stranding, slightly more prominent on the right. URINARY BLADDER: Unremarkable. BOWEL: No evidence of diverticulosis or diverticulitis. Appendix appears normal. No evidence of bowel obstruction. REPRODUCTIVE ORGANS: Unremarkable. PERITONEUM: No intraabdominal free fluid or free air. LYMPH NODES: No pathologically enlarged mesenteric or retroperitoneal lymph nodes. ABDOMINAL WALL: Small fat-containing bilateral inguinal hernias. BONES: No acute abnormality. LOWER CHEST: Visualized lung bases are unremarkable. CT/Abdomen/Pelvis without Cont IMPRESSION: 1. 4 mm stone in the distal right ureter with mild right hydronephrosis. Findings are similar as compared to 01/04/2024. 2. Nonobstructing bilateral renal stones. 3. Fatty infiltration of the liver. Electronically Signed: Colin Romero DO at 2:34 EDT ,
[2024-02-23 01:58] VITALS: BP 138/91; PULSE 57; RESP 18; TEMP 36.4; O2SAT 99
[2024-02-23 02:00] VITALS: BP 138/91; PULSE 57; RESP 16; TEMP 36.4; O2SAT 99
--- NOTE | 2024-02-23 02:20 | EDS_ITS ---
HPI History of Present Illness Chief Complaint: Flank Pain Informant: patient Narrative Narrative: Patient is a 64-year-old male with past medical history of hypertension hyperlipidemia diabetes and previous kidney stones. He states that he laid down to watch TV and get ready for bed this evening and noticed sharp pain along his right flank and right sided abdomen around 9:00 tonight. He states there has been no trauma or excessive activity. He denies any dysuria or hematuria. However as time past he noticed increasing pain in that right flank region that felt similar nature to his previous kidney stones and therefore comes in for evaluation [facility] Medical History Hyperlipidemia Diabetes mellitus Hypertension Home Medications ?Medication ?Instructions ?Recorded ?Last Taken ?Type hydrocodone-acetaminophen 5-325mg 1 tab PO Q6H PRN PRN Pain 3 days 08/11/23 Unkn own Rx 5mg-325mg #12 TABLETS ondansetron 4 mg disintegrating 4 mg PO Q6H PRN PRN Nausea #15 tabs 08/11/23 Unknown Rx tablet tamsulosin 0.4 mg capsule (Flomax) 0.4 mg PO QHS 7 days #7 caps 08/11/23 Unknown Rx atorvastatin 20 mg tablet 20 mg PO QHS cholesterol 01/04/24 Unknown History hydrocodone-acetaminophen 5-325mg 1 tab PO Q6H 3 days #12 TABLETS 01/04/24 Unknown Rx 5mg-325mg lisinopril 40 mg tablet 40 mg PO DAILY 01/04/24 Unknown History ondansetron 4 mg disintegrating 4 mg PO Q8H PRN PRN Nausea #14 tabs 01/04/24 Unknown Rx tablet ketorolac 10 mg tablet 10 mg PO 4X/DAY PRN pain 5 days 02/23/24 Unknown Rx #20 tabs metoprolol succinate 25 mg 25 mg PO DAILY 02/23/24 Unknown History tablet,extended release 24 hr ondansetron 4 mg disintegrating 4 mg PO TID PRN nausea and 02/23/24 Unknown Rx tablet vomiting #21 tabs oxycodone-acetaminophen 5 mg-325 1 tab PO Q6H PRN pain 3 days #12 02/23/24 Unknown Rx mg tablet (Percocet) tabs tamsulosin 0.4 mg capsule (Flomax) 0.4 mg PO DAILY 14 days #14 caps 02/23/24 Unknown Rx Allergy/AdvReac Type Severity Reaction Status Date / Time diltiazem Allergy Mild dizziness Verified 02/23/24 00:56 triamterene Allergy Mild dizziness Verified 02/23/24 00:56 Surgical History Hx of cholecystectomy Social History Smoking Status: Never smoker ROS ROS ED Constitutional Constitutional ED: Denies chills or fever(s) ENT ENT ED: Denies sore throat Cardiovascular Cardiovascular: Denies chest pain Respiratory/Chest Respiratory/Chest: Denies cough or dyspnea Gastrointestinal Gastrointestinal: Reports abdominal pain; Denies diarrhea, nausea or vomiting Genitourinary Genitourinary ED: Denies dysuria, hematuria or urinary frequency Musculoskeletal Musculoskeletal: Reports back pain Integumentary Denies rash Neurologic Neurologic: Denies headache(s) Hematologic/Lymphatic Hematologic/Lymphatic: Denies easy bleeding or easy bruising EXAM Physical Exam Const Vital Signs: 02/23/24 00:55 02/23/24 00:58 02/23/24 01:58 Temperature 97.3 F L 97.2 F L 97.6 F L Temperature Source Temporal Temporal Temporal Pulse Rate 56 L 56 L 57 L Respiratory Rate 18 16 18 Blood Pressure 141/100 H 141/100 H 138/91 H Blood Pressure Mean 113 113 106 Pulse Ox 98 98 99 Oxygen Delivery Method Room Air Room Air Room Air 02/23/24 02:00 Temperature 97.6 F L Temperature Source Temporal Pulse Rate 57 L Respiratory Rate 16 Blood Pressure 138/91 H Blood Pressure Mean 106 Pulse Ox 99 Oxygen Delivery Method Room Air Positive well nourished, well developed and obese General Appearance ED: well developed; Negative for pallor Nutritional Appearance: obese HEENT HEENT Narrative: Normocephalic atraumatic Eyes PERRL and EOMs intact bilaterally General Eye ED: Negative for scleral icterus Neck supple Resp normal respiratory effort and clear to auscultation bilaterally Cardio regular rate and regular rhythm Rate: other Other Details: Heart is regular rate and rhythm Radial and carotid pulses are equal and symmetric GI non-distended and no masses GI Narrative: Abdomen is soft and nondistended with normal active bowel sounds. Patient has pain to palpation along the right lateral abdomen diffusely without voluntary guarding or rigidity. No pulsatile mass or fluid wave Auscultation: normoactive bowel sounds Palpation: soft Back/Spine Back/Spine Narrative: Positive right CVA pain noted Extremity normal to inspection Neuro oriented x3, CN's II-XII intact bilaterally and no sensory deficits noted Sensorium / Orientation: alert Motor Exam: strength 5/5 throughout Psych mental status grossly normal Skin no rashes or lesions noted Skin Narrative: No overlying soft tissue changes to suggest trauma or infection General Skin Exam: Negative for jaundice or pallor MDM MDM MDM Narrative Medical decision making narrative: Patient arrived to the ER hypertensive but otherwise with stable vitals. He denied any recent trauma or excessive activity and there was no midline pain so had low concern for compression fracture or spondylolisthesis. He also denied any dysuria so my concern for UTI or pyelonephritis is low. Patient also denies any loss of bowel or bladder control or IV drug use going against cauda equina or epidural abscess. Based on his previous history and exam this is most likely repeat kidney stone. Therefore basic blood work and a urine sample were obtained as well as noncontrast abdominal CT. Labs show no signs of acute k idney injury or urosepsis. After IV hydration and treatment with Toradol patient had resolution of his pain and his blood pressure improved. Therefore at this time as patient does not have urosepsis or PATRICIA or intractable pain there is no need for emergent urology consultation or admission to the hospital and he is otherwise safe for discharge. History & Record Review Discussion w/independent historian: Patient Lab Data Attestation: I reviewed the patient's lab results. Labs: Laboratory Results - last 24 hr 02/23/24 02/23/24 01:00 02:35 WBC 8.1 RBC 5.49 Hgb 14.8 Hct 45.1 MCV 82.1 MCH 27.0 MCHC 32.8 RDW Std Deviation 41.2 RDW Coeff of Navin 14.0 Plt Count 298 MPV 9.7 Immature Gran % (Auto) 0.600 Neut % (Auto) 38.9 L Lymph % (Auto) 44.0 H [place] % (Auto) 14.1 H Eos % (Auto) 1.8 Baso % (Auto) 0.6 Absolute Neuts (auto) 3.2 Absolute Lymphs (auto) 3.58 Nucleated RBC % 0 Sodium 139 Potassium 3.6 Chloride 106 Carbon Dioxide 27.0 Anion Gap 6 BUN 24 H Creatinine 1.27 Estim Creat Clear Calc 70.88 Est GFR (MDRD) Af Amer 73 Est GFR (MDRD) Non-Af 61 BUN/Creatinine Ratio 18.9 Glucose 142 H Calcium 9.6 Urine Color Yellow Urine Clarity Clear Urine pH 6.0 Ur Specific [place] 1.025 Urine Protein 15 H Urine Glucose (UA) Normal Urine Ketones Negative Urine Occult Blood 10 H Urine Nitrite Negative Urine Bilirubin Negative Urine Urobilinogen Normal Ur Leukocyte Esterase Negative Urine RBC 0 SEEN Urine WBC 0 SEEN Ur Squamous Epith Cells 0 SEEN Urine Bacteria 0 SEEN Urine Mucus 0 SEEN Radiography Diagnostic Testing: Clinical Impression(s) from Imaging Studies Abdomen/Pelvis CT 02/23/24 01:44 IMPRESSION: 1. 4 mm stone in the distal right ureter with mild right hydronephrosis. Findings are similar as compared to 01/04/2024. 2. Nonobstructing bilateral renal stones. 3. Fatty infiltration of the liver. Electronically Signed: Colin Romero DO at 2:34 EDT , Discharge Plan Triage Chief Complaint: Flank Pain ED Provider: Paul Mcclure Dx/Rx/DC Orders Clinical Impression: Kidney stone, Renal colic, Hypertension, Hyperlipidemia, Type 2 diabetes mellitus Instructions: ED Kidney Stone with Pain Prescriptions: New tamsulosin [Flomax] 0.4 mg capsule 0.4 mg PO DAILY 14 Days Qty: 14 0RF ondansetron 4 mg tablet,disintegrating 4 mg PO TID PRN (Reason: nausea and vomiting) Qty: 21 0RF ketorolac 10 mg tablet 10 mg PO 4X/DAY PRN (Reason: pain) 5 Days Qty: 20 0RF oxycodone-acetaminophen [Percocet] 5-325 mg tablet 1 tab PO Q6H PRN (Reason: pain) 3 Days Qty: 12 0RF No Action hydrocodone-acetaminophen [hydrocodone-acetaminophen] 5-325 mg tablet 1 tab PO Q6H PRN PRN (Reason: Pain) 3 Days Qty: 12 0RF tamsulosin [Flomax] 0.4 mg capsule 0.4 mg PO QHS 7 Days Qty: 7 0RF ondansetron [ondansetron] 4 mg tablet,disintegrating 4 mg PO Q6H PRN PRN (Reason: Nausea) Qty: 15 0RF hydrocodone-acetaminophen 5-325 mg tablet 1 tab PO Q6H 3 Days Qty: 12 0RF ondansetron 4 mg tablet,disintegrating 4 mg PO Q8H PRN PRN (Reason: Nausea) Qty: 14 0RF atorvastatin 20 mg tablet 20 mg PO QHS lisinopril 40 mg tablet 40 mg PO DAILY metoprolol succinate 25 mg tablet extended release 24 hr 25 mg PO DAILY Primary Care Provider: Sen Rodriguez Referrals: Ke Ford MD [Med Staff - Active Staff] - Sen Rodriguez MD [Primary Care Provider] - Activity Restrictions/Additional Instructions: Please return to the ER if you develop a fever over 100.4 or your pain is not controlled with the prescribed medication. Otherwise follow-up with urology to discuss further treatment options if you do not pass the stone spontaneously and return to the ER should you have any further concerns Print Language: Yemeni Disposition Disposition: Home, Self Care
[2024-02-23 02:40] LABS: Color, Urine Yellow (Yellow); Glucose, Dipstick Normal (Normal); Ketone-Dipstick Negative (Negative); Leukocyte Esterase-Dipstick Negative /ul (Negative); Nitrite-Dipstick Negative (Negative); Occult Blood-Urine 10 /ul (Negative); Protein-Dipstick 15 mg/dl (Negative); Specific Gravity, Urine 1.025 (1.002-1.030); Urine Bilirubin Dipstick Negative (Negative); Urine Clarity Clear (Clear); Urine Urobilinogen Normal (Normal)
[2024-02-23 02:43] LABS: Bacteria 0 SEEN /hpf (None Seen); Mucous, Urine 0 SEEN /hpf (<or=2+); Red Blood Cells-Urine 0 SEEN /hpf (0-5); Squamous Epithelial Cells - UA 0 SEEN /hpf (0-5); White Blood Cells 0 SEEN /hpf (0-5)
[2024-02-23 02:55] VITALS: PULSE 59
[2024-02-23 03:02] VITALS: BP 143/88; PULSE 59; RESP 16; TEMP 36.3; O2SAT 99
== END 2024-02-23 03:17 | disposition home or self-care (01) ==
PROVIDERS: Emergency Provider Emergency Medicine; PCP Family Medicine; Visit Provider Emergency Medicine
DX: N13.2 Hydronephrosis with renal and ureteral calculous obstruction (principal); E11.9 Type 2 diabetes mellitus without complications; N23 Unspecified renal colic; E78.5 Hyperlipidemia, unspecified; I10 Essential (primary) hypertension; Z87.442 Personal history of urinary calculi; Z79.899 Other long term (current) drug therapy; Z90.49 Acquired absence of other specified parts of digestive tract; E66.9 Obesity, unspecified
CPT/HCPCS: 74176; 80048; 81001; 85025; 96374; 99283; J7030; A4216

== ENCOUNTER 2024-11-23 21:03 | Emergency (ER) | payer OTHER, SELFPAY ==
[2024-11-23 21:04] VITALS: BP 171/100; PULSE 70; RESP 20; TEMP 36.8; O2SAT 100; BMI 32.8
--- NOTE | 2024-11-23 21:12 | CT_ITS ---
PROCEDURE: ABDOMEN/PELVIS WITHOUT CONT 11/23/2024 REASON FOR EXAM: LEFT FLANK PAIN, H/O KIDNEY STONES TECHNIQUE: Abdomen and pelvis CT without intravenous contrast. Noncontrast technique limits evaluation of the abdominal and pelvic viscera. Coronal and Sagittal reconstruction series were provided. One or more dose reduction techniques were used (e.g., Automated exposure control, adjustment of the mA and/or kV according to patient size, use of iterative reconstruction technique). PATIENT PREPARATION: Per protocol ORAL CONTRAST TYPE: None. AMOUNT: mL COMPARISON: Multiple CTs of the abdomen and pelvis most recently 02/23/2024 FINDINGS: Lung bases: Unremarkable. Liver: Diffuse steatosis. No focal lesion. Gallbladder: No ductal dilation. Status post cholecystectomy. Spleen: Normal size. Pancreas: Normal size. No surrounding inflammation. Adrenals: 3.1 cm right adrenal oval low-attenuation lesion, likely lipid rich adenoma. Left adrenal gland is unremarkable. Kidneys: 5 mm mid left ureteral obstructing calculus, with mild hydronephrosis and perinephric soft tissue stranding. No right calculus or hydronephrosis. Bladder: Urinary bladder is unremarkable. Reproductive Organs: Mild prostatomegaly. Bowel: Small hiatal hernia. Remainder of the stomach is unremarkable. No bowel dilation or significant wall thickening. Appendix: Normal appendix. Lymph nodes: No suspicious lymph node enlargement. Vasculature: Mild diffuse atherosclerotic calcifications are noted. Peritoneum / Retroperitoneum: No pneumoperitoneum. No ascites. Bones: Degenerative changes of the spine. Soft tissue: Small fat containing umbilical hernia. CT/Abdomen/Pelvis without Cont IMPRESSION: 1. 5 mm mid left ureteral obstructing calculus with mild hydronephrosis and per inephric soft tissue stranding. 2. Diffuse hepatic steatosis. 3. 3.1 cm right adrenal lesion, likely a lipid rich adenoma. Reading Location: [facility]
[2024-11-23] MEDS: 0.9% Normal Saline (1000mL) 1,000 ML 1000 ML IV (21:26)
[2024-11-23] MEDS: Ondansetron 4 MG/2 ML Vial IV (21:26)
[2024-11-23] MEDS: Morphine 4 MG/ML Syringe IV (21:26)
[2024-11-23 21:38] LABS: Absolute Neutrophil Count 6.6 X10^3/uL (2.0-7.7); Basophil# 0.03 X10^3/uL; Basophil% 0.3 % (0-1); Eosinophil# 0.07 X10^3/uL; Eosinophils% 0.8 % (0-5); Hematocrit 45.6 % (40-54); Lymphocyte % 22.9 % (19-41); Mean Corp Hgb Conc 32.9 g/dL (32-36); Mean Corpuscular Hgb 27.2 pg (27.0-32.0); Mean Corpuscular Volume 82.8 fL (80-94); Mean Platelet Vol. 9.5 fl (6.2-12.0); Monocyte# 0.31 X10^3/uL; Monocyte% 3.4 % (0-10); NRBC Flagged by Analyzer 0 % (0-5); Neutrophil % 71.9 % (47-70); Platelet Count 273 K/mm3 (150-450); RBC Distribution Width CV 14.3 % (11.6-14.6); RBC Distribution Width SD 42.4 fl (35.1-43.9); Red Blood Count 5.51 M/mm3 (4.6-6.2); White Blood Count 9.2 K/mm3 (4.4-11.0)
[2024-11-23 21:58] LABS: ALB/GLOB Ratio 1.4 RATIO (0.9-2.4); AST(SGOT) 34 U/L (<=37); Alanine Aminotransfer ALT/SGPT 42 U/L (<=46); Albumin, Serum 4.4 g/dL (3.4-4.8); Alkaline Phosphatase 68 U/L (40-129); Anion Gap 14 (5-15); BUN 17 mg/dL (4-19); BUN/Creat Ratio 12.7 RATIO (10-20); Calcium,Total 9.9 mg/dL (7.6-11.0); Carbon Dioxide 24.1 mmol/L (21.0-32.0); Chloride 101 mmol/L (98-108); Creatinine, Serum 1.31 mg/dL (0.70-1.20); EST Glomerular Filtration Rate 61 (>60); Estimated Creatinine Clearance 68.77 ml/min (50-250); Globulin 3.2 g/dL (2.2-4.2); Glucose 162 mg/dL (70-99); Lipase 33 U/L (13-75); Potassium 3.6 mmol/L (3.3-5.1); Protein, Total 7.5 g/dL (5.9-8.4); Sodium Level 139 mmol/L (133-145); Total Bilirubin 0.47 mg/dL (0.00-1.30)
[2024-11-23 22:55] LABS: Mucous, Urine 0 SEEN /hpf (<or=2+)
[2024-11-23 22:56] VITALS: PULSE 82; RESP 18; O2SAT 97
[2024-11-23 22:58] LABS: Glucose, Dipstick Normal (Normal); Ketone-Dipstick 15 mg/dl (Negative); Leukocyte Esterase-Dipstick Negative /ul (Negative); Nitrite-Dipstick Negative (Negative); Occult Blood-Urine 250 /ul (Negative); Protein-Dipstick 30 mg/dl (Negative); Specific Gravity, Urine 1.015 (1.002-1.030); Urine Bilirubin Dipstick Negative (Negative); Urine Urobilinogen Normal (Normal); Urine pH 6.5 (5.0 - 8.0)
[2024-11-23 22:59] LABS: Color, Urine Yellow (Yellow); Urine Clarity Sl Cloudy (Clear)
[2024-11-23 23:20] LABS: Red Blood Cells-Urine > 100 SEEN /hpf (0-5); Squamous Epithelial Cells - UA 0-5 SEEN /hpf (0-5); White Blood Cells 0-5 SEEN /hpf (0-5)
[2024-11-23 23:21] LABS: Bacteria 1+ /hpf (None Seen)
--- NOTE | 2024-11-23 23:34 | EDS_ITS ---
HPI History of Present Illness Chief Complaint: Flank Pain Informant: patient Onset/Context/Timing Onset: Today Location: Left flank Worsened by: Nothing Associated Symptoms Associated Symptoms: Denies any urinary symptoms. Does have GI symptoms including nausea. Narrative Narrative: Patient has a history of kidney stones. Has never required surgery, has passed them on his own. This came on suddenly and he was concerned for new stone. Prior similar symptoms: Yes Recent Illness/Hospitalization: No PFSH [facility] Medical History Hyperlipidemia Diabetes mellitus Hypertension Home Medications ?Medication ?Instructions ?Recorded ?Last Taken ?Type hydrocodone-acetaminophen 5-325mg 1 tab PO Q6H PRN PRN Pain 3 days 08/11/23 Unknown Rx 5mg-325mg #12 TABLETS ondansetron 4 mg disintegrating 4 mg PO Q6H PRN PRN Na usea #15 tabs 08/11/23 Unknown Rx tablet tamsulosin 0.4 mg capsule (Flomax) 0.4 mg PO QHS 7 day s #7 caps 08/11/23 Unknown Rx atorvastatin 20 mg tablet 20 mg PO QHS cholesterol Unknown History hydrocodone-acetaminophen 5-325mg 1 tab PO Q6H 3 days #12 TABLETS 01/04/24 Unknown Rx 5mg-325mg lisinopril 40 mg tablet 40 mg PO DAILY 01/04/24 Unkn own History ondansetron 4 mg disintegrating 4 mg PO Q8H PRN PRN Na usea #14 tabs 01/04/24 Unknown Rx tablet ketorolac 10 mg tablet 10 mg PO 4X/DAY PRN pain 5 d ays 02/23/24 Unknown Rx #20 tabs metoprolol succinate 25 mg 25 mg PO DAILY 02/23/24 Unk nown History tablet,extended release 24 hr ondansetron 4 mg disintegrating 4 mg PO TID PRN nausea and 02/23/24 Unknown Rx tablet vomiting #21 tabs oxycodone-acetaminophen 5 mg-325 1 tab PO Q6H PRN pain 3 days #12 02/23/24 Unknown Rx mg tablet (Percocet) tabs tamsulosin 0.4 mg capsule (Flomax) 0.4 mg PO DAILY 14 days #14 caps 02/23/24 Unknown Rx ondansetron 4 mg disintegrating 4 mg PO Q8H PRN PRN Na usea #10 tabs 11/23/24 Unknown Rx tablet oxycodone-acetaminophen 5 mg-325 1 tab PO Q8H PRN pain 3 days #10 11/23/24 Unknown Rx mg tablet (Percocet) tabs Allergy/AdvReac Type Severity Reaction Status Date / Time diltiazem Allergy Mild dizziness Verified 11/23/24 21:05 triamterene Allergy Mild dizziness Verified 11/23/24 21:05 Surgical History Total knee replacement status Hx of cholecystectomy Social History Smoking Status: Never smoker ROS ROS ED Constitutional Constitutional ED: Denies chills or fever(s) Cardiovascular Cardiovascular: Denies chest pain Respiratory/Chest Respiratory/Chest: Denies dyspnea Gastrointestinal Gastrointestinal: Reports nausea; Denies abdominal pain Genitourinary Genitourinary ED: Denies dysuria, hematuria or urinary frequency Musculoskeletal Musculoskeletal: Reports back pain; Denies arthralgias or myalgias Integumentary Denies rash Neurologic Neurologic: Denies headache(s), paresthesias or weakness Hematologic/Lymphatic Hematologic/Lymphatic: Denies easy bleeding or easy bruising EXAM Physical Exam Const Vital Signs: 11/23/24 21:04 11/23/24 22:56 Temperature 98.2 F Temperature Source Oral Pulse Rate 70 82 Respiratory Rate 20 H 18 Blood Pressure 171/100 H Blood Pressure Mean 123 Pulse Ox 100 97 Oxygen Delivery Method Room Air Room Air Positive well nourished and well developed General Appearance ED: well developed HEENT Reports moist mucous membranes Eyes EOMs intact bilaterally Resp normal respiratory effort and clear to auscultation bilaterally Cardio regular rate and regular rhythm GI normal to inspection, nondistended, normoactive bowel sounds Back/Spine Back/Spine Narrative: Left CVA tenderness General Back: CVA tenderness Extremity normal to inspection Neuro oriented x3 Sensorium / Orientation: alert Psych mental status grossly normal Skin no rashes or lesions noted MDM MDM MDM Narrative Medical decision making narrative: Patient had sudden onset of left flank pain. History of kidney stones. He does not have fever. No trauma. No neurologic symptoms. Patient was treated with pain and nausea medicine as well as IV fluids. Symptoms improved. CT showed a left mid ureter stone with obstruction 5 mm. Otherwise unremarkable. Labs look good. No sign of sepsis or kidney injury. Urine was not infected. Plan will be discharged home. Continue Flomax. Strain urine. Pain meds and nausea meds. Follow-up with urology for recheck. Return for any new or worsening issues. Discharge home. Impression #1 left ureteral colic Impression #2 left kidney stones Lab Data Labs: Laboratory Results - last 24 hr 11/23/24 11/23/24 21:30 22:51 WBC 9.2 RBC 5.51 Hgb 15.0 Hct 45.6 MCV 82.8 MCH 27.2 MCHC 32.9 RDW Std Deviation 42.4 RDW Coeff of Navin 14.3 Plt Count 273 MPV 9.5 Immature Gran % (Auto) 0.700 Neut % (Auto) 71.9 H Lymph % (Auto) 22.9 [place] % (Auto) 3.4 Eos % (Auto) 0.8 Baso % (Auto) 0.3 Absolute Neuts (auto) 6.6 Absolute Lymphs (auto) 2.10 Nucleated RBC % 0 Sodium 139 Potassium 3.6 Chloride 101 Carbon Dioxide 24.1 Anion Gap 14 BUN 17 Creatinine 1.31 H Estim Creat Clear Calc 68.77 Est GFR (MDRD) Non-Af 61 BUN/Creatinine Ratio 12.7 Glucose 162 H Calcium 9.9 Total Bilirubin 0.47 AST 34 ALT 42 Alkaline Phosphatase 68 Total Protein 7.5 Albumin 4.4 Globulin 3.2 Albumin/Globulin Ratio 1.4 Lipase 33 Urine Color Yellow Urine Clarity Sl Cloudy Urine pH 6.5 Ur Specific [place] 1.015 Urine Protein 30 H Urine Glucose (UA) Normal Urine Ketones 15 H Urine Occult Blood 250 H Urine Nitrite Negative Urine Bilirubin Negative Urine Urobilinogen Normal Ur Leukocyte Esterase Negative Urine RBC > 100 SEEN Urine WBC 0-5 SEEN Ur Squamous Epith Cells 0-5 SEEN Urine Bacteria 1+ Urine Mucus 0 SEEN Radiography Diagnostic Testing: Clinical Impression(s) from Imaging Studies Abdomen/Pelvis CT 11/23/24 21:12 IMPRESSION: 1. 5 mm mid left ureteral obstructing calculus with mild hydronephrosis and perinephric soft tissue stranding. 2. Diffuse hepatic steatosis. 3. 3.1 cm right adrenal lesion, likely a lipid rich adenoma. Reading Location: [facility] Discharge Plan Triage Chief Complaint: Flank Pain ED Provider: Gainluca Joshua Dx/Rx/DC Orders Clinical Impression: Kidney stone Instructions: ED Kidney Stone with Pain Prescriptions: New oxycodone-acetaminophen [Percocet] 5-325 mg tablet 1 tab PO Q8H PRN (Reason: pain) 3 Days Qty: 10 0RF ondansetron 4 mg tablet,disintegrating 4 mg PO Q8H PRN PRN (Reason: Nausea) Qty: 10 0RF No Action hydrocodone-acetaminophen [hydrocodone-acetaminophen] 5-325 mg tablet 1 tab PO Q6H PRN PRN (Reason: Pain) 3 Days Qty: 12 0RF tamsulosin [Flomax] 0.4 mg capsule 0.4 mg PO QHS 7 Days Qty: 7 0RF ondansetron [ondansetron] 4 mg tablet,disintegrating 4 mg PO Q6H PRN PRN (Reason: Nausea) Qty: 15 0RF hydrocodone-acetaminophen 5-325 mg tablet 1 tab PO Q6H 3 Days Qty: 12 0RF ondansetron 4 mg tablet,disintegrating 4 mg PO Q8H PRN PRN (Reason: Nausea) Qty: 14 0RF atorvastatin 20 mg tablet 20 mg PO QHS lisinopril 40 mg tablet 40 mg PO DAILY metoprolol succinate 25 mg tablet extended release 24 hr 25 mg PO DAILY tamsulosin [Flomax] 0.4 mg capsule 0.4 mg PO DAILY 14 Days Qty: 14 0RF ondansetron 4 mg tablet,disintegrating 4 mg PO TID PRN (Reason: nausea and vomiting) Qty: 21 0RF ketorolac 10 mg tablet 10 mg PO 4X/DAY PRN (Reason: pain) 5 Days Qty: 20 0RF oxycodone-acetaminophen [Percocet] 5-325 mg tablet 1 tab PO Q6H PRN (Reason: pain) 3 Days Qty: 12 0RF Primary Care Provider: Sen Rodriguez Referrals: Ke Ford MD [Med Staff - Active Staff] - Sen Rodriguez MD [Primary Care Provider] - Print Language: Japanese Disposition Disposition: Home, Self Care
[2024-11-23] MEDS: oxyCODONE 5 MG Tablet PO (23:41)
[2024-11-23 23:42] VITALS: BP 202/113; PULSE 84; RESP 18; TEMP 36.6; O2SAT 96
== END 2024-11-23 23:50 | disposition home or self-care (01) ==
PROVIDERS: Emergency Provider Emergency Medicine; PCP Family Medicine; Visit Provider Emergency Medicine
DX: N13.2 Hydronephrosis with renal and ureteral calculous obstruction (principal); E11.9 Type 2 diabetes mellitus without complications; E78.5 Hyperlipidemia, unspecified; Z87.442 Personal history of urinary calculi; I10 Essential (primary) hypertension
CPT/HCPCS: 74176; 80053; 81001; 83690; 85025; 96361; 96374; 96375; 99283; A4216; J2405